=== PATIENT | female | born 1970 | race Caucasian/White ===

== ENCOUNTER → 2017-08-19 | Outpatient (CLI) | payer OTHER ==
[2017-08-19] MEDS: IOHEXOL 300 MG/ML 100ML VIAL. IV (16:15)
[2017-08-19] MEDS: IOHEXOL 240 MG/ML 50ML VIAL. PO (16:15)
== END | disposition home or self-care (01) ==
LOC: RAD 15:03
DX: N83.292 Other ovarian cyst, left side (principal)
CPT/HCPCS: 74177; Q9966; Q9967

== ENCOUNTER → 2017-11-04 | Outpatient (CLI) | payer OTHER | END | disposition home or self-care (01) | LOC: LAB 08:29 | DX: M25.551 Pain in right hip (principal); M25.552 Pain in left hip | CPT/HCPCS: 73521 ==

== ENCOUNTER → 2017-12-30 | Outpatient (CLI) | payer OTHER | END | disposition home or self-care (01) | LOC: SPEC 15:01 | PROVIDERS: ATTEND Obstetrics & Gynecology | DX: R35.0 Frequency of micturition (principal) | CPT/HCPCS: 87086 ==

== ENCOUNTER 2018-01-08 10:20 | Emergency (ER) | payer OTHER ==
[~2018-01-08] VITALS: Ht 170.2 cm; Wt 113.4 kg
[2018-01-08] MEDS: METOCLOPRAMIDE HCL 10 MG/2 ML VIAL. IV ONE (10:56)
[2018-01-08] MEDS: diphenhydrAMINE 50 MG/ML VIAL IVP ONE (10:56)
--- NOTE | 2018-01-08 11:31 | RAD ---
EXAM: CT HEAD WITHOUT CONTRAST. HISTORY: Persistent headache. TECHNIQUE: Computed tomography of the head was performed without intravenous contrast. COMPARISON: None. FINDINGS: There is no intracranial hemorrhage. Hypoattenuation within the periventricular white matter indicates mild chronic microangiopathic change. The ventricles are normal in size and position. The visualized paranasal sinuses appear clear. The orbits are unremarkable. The temporal bones are unremarkable. The calvarium reveals no suspicious lesions. IMPRESSION: 1. No acute intracranial findings. MRI is more sensitive if there is persistent concern. *One or more of the following individualized dose reduction techniques were utilized for this examination: 1. Automated exposure control. 2. Adjustment of the mA and/or kV according to patient size. 3. Use of iterative reconstruction technique. Electronically signed by: Shama Vee MD (01/08/2018 11:28 AM) [facility]
--- NOTE | 2018-01-08 11:43 | PHYS DOC ---
Past Medical History Past Medical History: Bipolar, Hypertension Additional Past Medical Histor: SLEEP APNEA Past Surgical History: Appendectomy, Cholecystectomy, Additional Past Surgical Histo: ENDOMETRIAL ABLATION Alcohol Use: None Drug Use: None Adult General Chief Complaint Chief Complaint: HEADACHE HPI HPI Patient is a 47 year old female presented to ER today for evaluation of headache for the last 6 days. Patient said headache is Behind Her Left Eye, causing sensitive to light and noise. Patient has history of migraine headache , but the headache this time it is more persistent than usual. She denies any fever, no neck pain, no injury. Patient denies any blurry vision, no eye pain, no neck pain, no fever. She has history hypertension. Review of Systems Review of Systems Constitutional: Denies fever or chills [] Eyes: Denies change in visual acuity, redness, or eye pain [] HENT: Denies nasal congestion or sore throat [] Respiratory: Denies cough or shortness of breath [] Cardiovascular: No additional information not addressed in HPI [] GI: Denies abdominal pain, nausea, vomiting, bloody stools or diarrhea [] : Denies dysuria or hematuria [] Musculoskeletal: Denies back pain or joint pain [] Integument: Denies rash or skin lesions [] Neurologic: Positive for headache, NO focal weakness or sensory changes [] Endocrine: Denies polyuria or polydipsia [] All other systems were reviewed and found to be within normal limits, except as documented in this note. Current Medications Current Medications Current Medications Medications (Trade) Dose Ordered Sig/Rachele Start Time Stop Time Status Last Admin Dose Admin Dihydroergotamine Mesylate (Dhe) 1 mg 1X STAT 01/08/18 14:03 01/08/18 14:07 DC 01/08/18 14:19 1 MG Diphenhydramine HCl (Benadryl) 50 mg 1X ONCE 01/08/18 10:45 01/08/18 10:46 DC 01/08/18 10:56 50 MG Ketamine HCl (Ketamine) 25 mg 1X ONCE 01/08/18 13:15 01/08/18 13:16 DC 01/08/18 13:20 25 MG Ketorolac Tromethamine (Toradol 30mg Vial) 30 mg 1X ONCE 01/08/18 11:45 01/08/18 11:46 DC 01/08/18 11:57 30 MG Methylprednisolone Sodium Succinate (SOLU-Medrol 125MG VIAL) 125 mg 1X ONCE 01/08/18 11:45 01/08/18 11:46 DC 01/08/18 11:57 125 MG Metoclopramide HCl (Reglan Vial) 10 mg 1X ONCE 01/08/18 10:45 01/08/18 10:46 DC 01/08/18 10:56 10 MG Morphine Sulfate (Morphine Sulfate) 4 mg 1X ONCE 01/08/18 15:00 01/08/18 15:01 Sodium Chloride 500 ml @ 500 mls/hr 1X ONCE 01/08/18 13:15 01/08/18 14:14 DC 01/08/18 13:20 500 MLS/HR Allergies Allergies Allergies Coded Allergies Type Severity Reaction Last Updated Verified Tetanus Vaccines and Toxoid Allergy Intermediate 01/08/18 Yes acetaminophen Allergy Intermediate 01/08/18 Yes propoxyphene Allergy Intermediate 01/08/18 Yes Uncoded Allergies Type Severity Reaction Last Updated Verified progesterone medication Allergy Unknown 01/08/18 Physical Exam Physical Exam Constitutional: Well developed, well nourished, no acute distress, non-toxic appearance. [] HENT: Normocephalic, atraumatic, bilateral external ears normal, oropharynx moist, no oral exudates, nose normal. [] Eyes: PERRLA, EOMI, conjunctiva normal, no discharge. [] Neck: Normal range of motion, no tenderness, supple, no stridor. [] Cardiovascular:Heart rate regular rhythm, no murmur [] Lungs & Thorax: Bilateral breath sounds clear to auscultation [] Abdomen: Bowel sounds normal, soft, no tenderness, no masses, no pulsatile masses. [] Skin: Warm, dry, no erythema, no rash. [] Back: No tenderness, no CVA tenderness. [] Extremities: No tenderness, no cyanosis, no clubbing, ROM intact, no edema. [] Neurologic: Alert and oriented X 3, normal motor function, normal sensory function, no focal deficits noted. [] Psychologic: Affect normal, judgement normal, mood normal. [] Current Patient Data Vital Signs Vital Signs Date Time Temp Pulse Resp B/P (MAP) Pulse Ox O2 Delivery O2 Flow Rate FiO2 01/08/18 14:09 99 18 99 01/08/18 10:40 99.2 165/101 (122) Room Air 99.2 EKG EKG [] Radiology/Procedures Radiology/Procedures [][facility] [address] [place] [address] IMAGING REPORT Signed PATIENT: BHARGAVI KENT ACCOUNT: [id number] : 1970 LOCATION: ER AGE: 47 SEX: F EXAM STATUS: PRE ER ORD. PHYSICIAN: JIMENA BERNAL DO REASON: HEADACHE, HTN FOR 6 DAYS PROCEDURE: CT HEAD WO CONTRAST EXAM: CT HEAD WITHOUT CONTRAST. HISTORY: Persistent headache. TECHNIQUE: Computed tomography of the head was performed without intravenous contrast. COMPARISON: None. FINDINGS: There is no intracranial hemorrhage. Hypoattenuation within the periventricular white matter indicates mild chronic microangiopathic change. The ventricles are normal in size and position. The visualized paranasal sinuses appear clear. The orbits are unremarkable. The temporal bones are unremarkable. The calvarium reveals no suspicious lesions. IMPRESSION: 1. No acute intracranial findings. MRI is more sensitive if there is persistent concern. *One or more of the following individualized dose reduction techniques were utilized for this examination: 1. Automated exposure control. 2. Adjustment of the mA and/or kV according to patient size. 3. Use of iterative reconstruction technique. Electronically signed by: Shama Vee MD (01/08/2018 11:28 AM) [facility] DICTATED and SIGNED BY: MALIHA VEE MD DATE: 01/08/18 1124 Course & Med Decision Making Course & Med Decision Making Pertinent Labs and Imaging studies reviewed. (See chart for details) [] Dragon Disclaimer Dragon Disclaimer This electronic medical record was generated, in whole or in part, using a voice recognition dictation system. Departure Departure Impression: Primary Impression: Headache Disposition: 01 HOME, SELF-CARE Condition: IMPROVED Referrals: THERESA LARIOS MD (PCP) FOLLOW UP WITH YOUR DOCTOR NEXT WEEK. Patient Instructions: General Headache Without Cause JIMENA BERNAL DO Jan 08, 2018 11:43
[2018-01-08] MEDS: KETOROLAC 30 MG/ML VIAL. IV ONE (11:57)
[2018-01-08] MEDS: methylPREDNISolone SOD SUCC PF 125 MG/2 ML VIAL. IV ONE (11:57)
[2018-01-08] MEDS: IV NORMAL SALINE 500ML BAG 500 ML IV ONE (13:20)
[2018-01-08] MEDS: KETAMINE HCL 50 MG/5 ML SYRINGE IV ONE (13:20)
[2018-01-08 14:09] VITALS: BP 140/78
[2018-01-08] MEDS: DIHYDROERGOTAMINE 1 MG/ML AMPUL. IVP STA (14:19)
[2018-01-08] MEDS: MORPHINE SULFATE 4 MG/ML VIAL. IV ONE (15:04)
[2018-01-08] MEDS ORDERED: BUTA1CAP31 PO (15:18)
== END 2018-01-08 15:23 | disposition home or self-care (01) ==
LOC: ER 10:20
DX: R51 Headache (principal); G43.909 Migraine, unspecified, not intractable, without status migrainosus; I10 Essential (primary) hypertension; F31.9 Bipolar disorder, unspecified; G47.30 Sleep apnea, unspecified; Z88.6 Allergy status to analgesic agent; Z88.7 Allergy status to serum and vaccine; Z88.8 Allergy status to other drugs, medicaments and biological substances
CPT/HCPCS: 70450; 96374; 96375; 99284; J1110; J1200; J1885; J2270; J2765; J2930; J7040

== ENCOUNTER → 2018-03-03 | Outpatient (CLI) | payer OTHER ==
[~2018-03-03] MED LIST: BUTA1CAP31 PO
--- NOTE | 2018-03-03 14:34 | RAD ---
Examination: MRI of the right shoulder without contrast HISTORY: History of right shoulder pain when lifting COMPARISON: None available Technique: Multiplanar, multisequence MR imaging of the right shoulder were performed without contrast. FINDINGS: The long head of the biceps tendon is within the bicipital groove. The attachment of the long head of the biceps tendon to the superior labral anchor grossly appears unremarkable. The attachment of the subscapularis tendon appears unremarkable. There is moderate tendinosis supraspinatus tendon. There is mild tendinosis of the infraspinatus tendon. There is fluid identified in the subacromial /subdeltoid bursa. The acromion is type II. There is bursal sided fraying of the supraspinatus tendon. A full-thickness rotator cuff tear with retraction is not clearly identified. There is obscuration of fat in the rotator interval. The muscle bulk grossly appears unremarkable. Mild fraying of the labrum likely degeneration. IMPRESSION: 1. Moderate tendinosis of the supraspinatus tendon. There is a bursal sided fraying of the supraspinatus tendon with downsloping of the acromion. Correlate for impingement. There is some fluid identified in the subacromial subdeltoid bursa could be secondary to bursitis. 2. Mild tendinosis of the infraspinatus tendon. 3. Mild obscuration of fat in the rotator interval. Correlate for adhesive capsulitis. Electronically signed by: Kehinde Rock MD (03/03/2018 2:30 PM) [id number]
== END | disposition home or self-care (01) ==
LOC: MRI 12:40
PROVIDERS: ATTEND Orthopaedic Surgery Sports Medicine
DX: M75.01 Adhesive capsulitis of right shoulder (principal)
CPT/HCPCS: 73221

== ENCOUNTER → 2018-03-24 | Outpatient (CLI) | payer OTHER ==
--- NOTE | 2018-03-24 11:00 | RAD ---
MRI Cervical Spine Without Contrast History: Worsening right arm radiculopathy for one month Technique: Multiplanar, multi sequential noncontrast MR imaging was performed of the cervical spine. Comparison: None Findings: Cervical cord caliber is within normal limits without focal signal abnormality. Cervical vertebral body stature and AP alignment are within normal limits. There is [id number] degenerative disc disease at C4-5 and C6-7 and to a somewhat lesser degree at C3-4 and C5-6. There is no significant marrow edema. C2-C3: There is minimal disc osteophyte complex and bulge. Spinal canal and neural foramina are adequate. There is minimal right uncovertebral degenerative change. C3-C4: There is disc osteophyte complex and bulge, probable shallow superimposed protrusion far right lateral recess. Central canal is adequate 12 mm, mild right lateral recess stenosis. There is right uncovertebral degenerative change. There is fairly severe narrowing of the right neural foramen, left neural foramen adequate. C4-C5: There is minimal disc osteophyte complex and bulge, mild indentation upon the ventral thecal sac greater for right lateral recess. Central canal is adequate at 11 to 12 mm, mild narrowing of the far right lateral recess. There is right uncovertebral degenerative change. There is moderate to severe narrowing of the right neural foramen, left neural foramen overall adequate. C5-C6: There is very minimal disc osteophyte complex and bulge. Spinal canal is overall adequate. Neural foramina are adequate. C6-C7: There is minimal posterior bulge. Central canal is adequate 11 to 12 mm. There is left uncovertebral degenerative change. There is very mild narrowing of the left neural foramen anteriorly, right neural foramen adequate. C7-T1: Spinal canal and neural foramina are adequate. Impression: 1. There is no significant cervical spinal stenosis, mild narrowing of the far right lateral recess C3-4 at which there is shallow protrusion. 2. Uncovertebral degenerative change contributes to more significant narrowing of the right C3-4 and C4-5 neural foramina. 3. There is multilevel [id number] degenerative disc disease greatest C4-5 and C6-7 and to lesser degree at C3-4 and C5-6, multilevel mild spondylosis. Electronically signed by: Sadiq Barragan MD (03/24/2018 10:56 AM) [id number]
== END | disposition home or self-care (01) ==
LOC: MRI 07:48
PROVIDERS: ATTEND Orthopaedic Surgery Sports Medicine
DX: M50.31 Other cervical disc degeneration, high cervical region (principal); M50.21 Other cervical disc displacement, high cervical region; M47.892 Other spondylosis, cervical region; M48.02 Spinal stenosis, cervical region; M25.78 Osteophyte, vertebrae
CPT/HCPCS: 72141

== ENCOUNTER → 2018-04-26 | Outpatient (CLI) | payer OTHER ==
[~2018-04-26] MED LIST changes: +ARIP15TA3 PO; +CLON0.5T PO; +DULO60CA6 PO; +IOHEXOL 180 MG/ML 10 ML VIAL. ONE; +LAMO150T3 PO; +LEVO50TA5 PO; +METO-247 PO; +TOPI50TA38 PO; +VERA240C2 PO; +methylPREDNISolone ACETATE 40 MG/ML VIAL. ONE; +methylPREDNISolone ACETATE 80 MG/ML VIAL. ONE
--- NOTE | 2018-04-26 18:05 | PAIN ---
DATE OF SERVICE: 04/26/2018 CHIEF COMPLAINT: Neck and right upper extremity pain. HISTORY OF PRESENT ILLNESS: This is a 48-year-old female who presents with history of pain since 02/21/2018. The patient was working. 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 The patient reports as the time has gone on, it has become worse over the past few months. It is constant pain, now is throbbing, tingling with numbness, radiation in the right upper extremity, aching and cold, changes during the day, worse with activity. The patient did do physical therapy for about 2 weeks, but the pain was not resolved and it was making it worse. The patient reports she still does some stretching exercises with her neck and shoulder. She did have an MRI scan of the cervical spine showing disk protrusions at C3-C4 and C4-C5 with far right lateral recess protrusion and shallow protrusion at the disk and osteophyte as well. There is history of both levels with mild narrowing in the far right lateral recess at C4-C5 and shallow superimposed protrusion at C3-C4. The patient reports the disability rate from 0-10, 10 being the worst, is an 8 with home responsibilities, recreation, 9 with occupation, 6 social activity, 4 sexual behavior and self-care and 3 with life support activities. The patient did physical therapy for about 2 weeks and doing some stretching and strengthening exercises. She has taken Tylenol, Naprosyn, ibuprofen, which helped to a mild extent maybe 25%. The patient has tried Lortab, which helped as well by about 50%. PAST MEDICAL HISTORY: Significant for hypertension, arthritis in the knees, headaches. PREVIOUS SURGERY: Includes a x 3, laparoscopic cholecystectomy, appendectomy, urine ablation, bladder sling procedure, bunionectomy. CURRENT MEDICATIONS: Include Fiorinal, Cymbalta, Klonopin, metoprolol, levothyroxine, Topamax, Lamictal, Abilify and verapamil. ALLERGIES: THE PATIENT IS ALLERGIC TO TETANUS TOXIN AND DARVOCET. FAMILY HISTORY: Significant for hypertension, bipolar disease, depression, hypercholesterolemia, cardiac disease and Alzheimer's. SOCIAL HISTORY: The patient drinks alcohol very rarely. Does not smoke or use any other illegal, illicit or recreational drugs. She is living with her spouse, has 2 children living at home, 1 in college and lives locally in [place], [place]. 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 REVIEW OF SYSTEMS: Positive for those items mentioned in history of present illness. All systems reviewed, otherwise negative. It is complete, full and well documented on the patient's chart. PHYSICAL EXAMINATION: VITAL SIGNS: The patient's blood pressure is 135/80, pulse 77, respirations 16, temperature is 98.7 degrees Fahrenheit. Height is 5 feet 7 inches, weight is 264 pounds. GENERAL: The patient is awake, alert, oriented, appropriate, very pleasant demeanor. HEENT: Head shows normocephalic, atraumatic. Extraocular movements are intact and symmetrical. Oral cavity: Mucous membranes are moist and pink. Dentition is intact. NECK: Shows anterior throat supple without palpable lymphadenopathy noted. Swallow reflex is symmetrical. CHEST: Shows normal on inspection. Breath sounds are clear to auscultation bilaterally. HEART: Shows S1, S2 clear. No murmurs auscultated. ABDOMEN: Obese, soft, nontender, nondistended. No palpable organomegaly is noted. No rebound or guarding demonstrated. BACK: Shows spine grossly in midline. Cervical lordotic curvature is maintained as is thoracic kyphotic curvature and lumbar lordotic curvature. Cervical paraspinal musculature shows symmetrical on inspection. The patient has some moderate tenderness, more on the right than the left in the inferior aspect of the cervical paraspinous musculature as well as the superior medial and lateral trapezius on the right, slightly more firm musculature without trigger points, without radiation. The patient has significant tenderness with rotation past 45 degrees to the right, but not to the left as well as full extension, full flexion was performed without difficulty. EXTREMITIES: The patient's upper extremities show deep tendon reflexes at 1+ in the patella and tendo calcaneus tendons. Motor exam is approximately 4 on a scale of 5 with right astrochemist strength and 5/5 with left and bicep and tricep flexion is 5/5 bilaterally. Peripheral pulses are 2+ radial distribution. No peripheral edema is noted. Shoulder shrug is strong and intact without loss of strength and resistance but with significant pain reported in the base of the neck and right superior aspect of the shoulder on the right side with resistance. This is true with abduction of the shoulder to 90 degrees bilaterally, but again without loss of strength and resistance, but with pain reported in the right side in the same region. IMPRESSION: 1. This is a 48-year-old female with an injury while working as registered nurse on 02/21/2018 with radicular pain in the right upper extremity. 2. MRI scan cervical spine as noted. 3. Hypertension. 4. Arthritis. PLAN: Options were discussed with the patient including conservative medical management, physical therapy, interventional techniques. She would like to pursue interventional techniques. We discussed cervical epidural steroid injection using descriptions as well anatomical models to describe the procedure. Risks were then discussed including but not limited to bleeding, infection, possibility of epidural hematoma and subsequent neurological compromise, dural puncture, headaches, spinal cord and/or nerve damage, side effects of steroid medication and poor results regarding pain control. The patient understands and wished to proceed. The patient will return to clinic in approximately 2 weeks for followup, was counseled as to return appointment, activity level and side effects to be aware of. DIAGNOSES: Cervical radiculopathy with cervical degenerative disk disease and cervical herniated disk. PROCEDURE: Cervical epidural steroid injection translaminar approach, C6-C7 level using C-arm fluoroscopic guidance under sterile prep and drape using local anesthetic. MEDICATIONS INJECTED: A total of 120 mg Depo-Medrol plus 5 mL preservative-free normal saline and 2 mL of Isovue for contrast. CONDITION AT DISCHARGE: Stable. The patient tolerated the procedure well, had no complications. EUNICE PEDRAZA MD DR: BLANCHE/ever JOB#: [id number] / [id number] ROSENDO Winston
== END | disposition home or self-care (01) ==
LOC: PNCL 13:39
PROVIDERS: ATTEND Anesthesiology
DX: M50.123 Cervical disc disorder at C6-C7 level with radiculopathy (principal); I10 Essential (primary) hypertension; M17.0 Bilateral primary osteoarthritis of knee; Z90.49 Acquired absence of other specified parts of digestive tract; Z98.890 Other specified postprocedural states; Z79.899 Other long term (current) drug therapy; Z82.49 Family history of ischemic heart disease and other diseases of the circulatory system; Z81.8 Family history of other mental and behavioral disorders; Z82.0 Family history of epilepsy and other diseases of the nervous system; Z83.49 Family history of other endocrine, nutritional and metabolic diseases; Z72.89 Other problems related to lifestyle; Z88.5 Allergy status to narcotic agent; Z88.7 Allergy status to serum and vaccine; Z88.8 Allergy status to other drugs, medicaments and biological substances
CPT/HCPCS: 62321; J1030; J1040; Q9965

== ENCOUNTER → 2018-05-09 | Outpatient (CLI) | payer OTHER ==
[~2018-05-09] MED LIST changes: +ACET500T68 PO; +CLON0.5T11 PO; +CYCL10TA2 PO; +DOCU-109 PO; +HYDR2TAB31 IVP; +IBUP-1060 PO; +LISI-334 PO; +LISI10TA2 PO; +MAGN2400 PO; +MORP4CAR IV; +NORT25CA PO; +NYST60PO TP; +ONDA4TAB7 IVP; +ONDA8TAB9 IVP; +OXYC1TAB19 PO
--- NOTE | 2018-05-09 20:37 | PAIN ---
DATE OF SERVICE: 05/09/2018 PROGRESS NOTE FOR PAIN CLINIC DIAGNOSIS: Cervical radiculopathy with cervical degenerative disk disease and cervical herniated disk. HISTORY OF PRESENT ILLNESS: The patient is a 48-year-old female who returns for followup status post cervical epidural steroid injection x 1. The patient reports 75% improvement for the first 2 days, then the pain came back significantly to basically the baseline level in the base of the neck and shoulders, a little worse on the right than the left with radiating pain in the arms with tingling and numbness in the hands bilaterally. The patient reports it is aching, dull, tingling, becoming more constant with time, worse with activity, standing, walking, raising her arms over her head, repetitive motions with the upper extremities, shoulders or moving her head, especially with extension of the cervical spine. The patient reports the pain is a 9 on a scale of 10 at its worst, 7 on average, 3 at its least and is a 7 today. The patient reports no new motor or sensory deficits, no new bowel or bladder incontinence or other complaints. The patient reports it awakens her from sleep about every 6 hours, but not every night. The patient reports no new changes. PHYSICAL EXAMINATION: VITAL SIGNS: The patient's blood pressure 140/85, pulse 77, respirations 18, temperature 98.4 degrees Fahrenheit, height 5 feet 7 inches and weight is 263 pounds. GENERAL: The patient is awake, alert, oriented, appropriate, very pleasant demeanor. HEENT: Head shows normocephalic and atraumatic. Extraocular movements are intact and symmetrical. Oral cavity: Mucous membranes are moist and pink. Dentition is intact. NECK: Shows anterior throat is supple without palpable lymphadenopathy noted. Swallow reflex is symmetrical. CHEST: Shows normal with inspection. Breath sounds are clear to auscultation bilaterally. HEART: Shows S1 and S2 clear. No murmurs are auscultated. ABDOMEN: Soft, nontender and nondistended. No palpable organomegaly is noted. No rebound or guarding. BACK: The patient's back shows spine grossly in the midline. Cervical paraspinous musculature and cervical lordotic curvature looks normal on appearance. Paraspinous musculature on palpation shows some moderate tenderness bilaterally, but only diffusely in the inferior aspect of the cervical paraspinous muscles and also superior medial trapezius, slightly more on the right than the left. The patient has good rotational motion of the cervical spine both laterally as well as extension and flexion with some minor tenderness with extension into the right posterior cervical distribution, but not with forward flexion. EXTREMITIES: Upper extremities show deep tendon reflexes 1+ in the biceps and triceps tendons. Motor exam is approximately 4 on a scale of 5 on the right, 5/5 on the left with director of maintenance strength, bicep and tricep flexion. Peripheral pulses are 2+ radial distribution. No peripheral edema is noted bilaterally. Options were discussed with the patient. The patient's old chart was reviewed as was her current medication regimen updated. Current review of systems updated today as well and we will proceed with a second in the series of cervical epidural steroid injection today with fluoroscopic guidance. Risks were again discussed including, but not limited to bleeding, infection, possibility of epidural hematoma, subsequent neurological compromise, dural puncture, headaches, spinal cord and/or nerve damage, side effects of steroid medication and poor results regarding pain control. The patient understands and wished to proceed. The patient will return to the clinic in approximately 2 weeks for followup, was counseled as to return appointment, activity level and side effects to be aware of. DIAGNOSIS: Cervical radiculopathy with cervical degenerative disk disease and cervical herniated disk. PROCEDURE: Cervical epidural steroid injection, translaminar approach C6-C7 level using C-arm fluoroscopic guidance under sterile prep and drape using local anesthetic. MEDICATION INJECTED: A total of 120 mg Depo-Medrol plus 5 mL of preservative-free normal saline and 2 mL of Isovue for contrast. CONDITION AT DISCHARGE: Stable. The patient tolerated the procedure well and had no complications. EUNICE PEDRAZA MD DR: BLANCHE/ever JOB#: [id number] / [id number]
== END | disposition home or self-care (01) ==
LOC: PNCL 14:03
PROVIDERS: ATTEND Anesthesiology
DX: M50.123 Cervical disc disorder at C6-C7 level with radiculopathy (principal); Z88.7 Allergy status to serum and vaccine; Z88.6 Allergy status to analgesic agent; Z88.8 Allergy status to other drugs, medicaments and biological substances
CPT/HCPCS: 62321; J1030; J1040; Q9965

== ENCOUNTER → 2018-05-18 | Outpatient (CLI) | payer OTHER ==
[~2018-05-18] MED LIST changes: -CLON0.5T11 PO; -CYCL10TA2 PO; -HYDR2TAB31 IVP; -IOHEXOL 180 MG/ML 10 ML VIAL. ONE; -LISI-334 PO; -MAGN2400 PO; -MORP4CAR IV; -NYST60PO TP; -ONDA4TAB7 IVP; -ONDA8TAB9 IVP; -methylPREDNISolone ACETATE 40 MG/ML VIAL. ONE; -methylPREDNISolone ACETATE 80 MG/ML VIAL. ONE
[2018-05-18 11:00] LABS: BASO % 1 % (0-3); EOS # 0.1 x10^3/uL (0.0-0.7); EOS % 1 % (0-3); HEMATOCRIT 41.4 % (36.0-47.0); HEMOGLOBIN 13.8 g/dL (12.0-15.5); LYMPH # 1.7 x10^3/uL (1.0-4.8); LYMPH % 20 % (24-48); MEAN CORPUSCULAR HEMOGLOBIN 31 pg (25-35); MEAN CORPUSCULAR HGB CONC 33 g/dL (31-37); MEAN CORPUSCULAR VOLUME 93 fL (79-100); MONO # 0.5 x10^3/uL (0.0-1.1); MONO % 6 % (0-9); NEUT # 6.2 x10^3uL (1.8-7.7); NEUT % 73 % (31-73); PLATELET COUNT 248 x10^3/uL (140-400); RED BLOOD COUNT 4.48 x10^6/uL (3.50-5.40); RED CELL DISTRIBUTION WIDTH 13.8 % (11.5-14.5); WHITE BLOOD COUNT 8.6 x10^3/uL (4.0-11.0)
[2018-05-18 11:19] LABS: ALBUMIN 3.5 g/dL (3.4-5.0); ALBUMIN/GLOBULIN RATIO 0.9 (1.0-1.7); GFR 59.4; POTASSIUM 3.8 mmol/L (3.5-5.1); TOTAL BILIRUBIN 0.3 mg/dL (0.2-1.0); TOTAL PROTEIN 7.2 g/dL (6.4-8.2)
== END | disposition home or self-care (01) ==
LOC: SURGPAT 10:21
PROVIDERS: ATTEND Neurological Surgery
DX: Z01.818 Encounter for other preprocedural examination (principal); M54.12 Radiculopathy, cervical region
CPT/HCPCS: 36415; 80053; 85025; 87641

== ENCOUNTER 2018-05-20 07:08 | Observation (INO) | payer OTHER ==
--- NOTE | 2018-05-19 14:52 | PREOP HP ---
DATE OF SERVICE: 05/20/2018 Mahad Hager RN dictating for Dr. Minesh Swan. 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 She has been having difficulty with right-sided neck pain and pain which radiates into her right shoulder and medial scapular region. There is also pain which can radiate into the right arm and to a lesser extent in the forearm and right hand. She notes tingling in the fingers of her right hand. She also wonders about weakness in both of her hands. The problem started on 02/21 after lifting a patient. She rates her pain as a 6-7/10. Turning her head to the right markedly increases her pain on the right side of her neck and right shoulder pain. Raising her arms up, also increases her pain. Occasionally, the pain can radiate up into the right ear. Ice and heat have helped. She is taking Tylenol and ibuprofen. She tried physical therapy, but that is on hold for the present time. PAST MEDICAL HISTORY: Osteoarthritis, headaches, hypertension, psychiatric care and thyroid disease. PAST SURGICAL HISTORY: , cholecystectomy, appendectomy, uterine ablation and bladder sling, nasal reconstruction. FAMILY HISTORY: Alzheimer's, brain tumor, cancer, heart disease, hypertension, MD, headaches. SOCIAL HISTORY: She is a registered nurse in the ER. . Nonsmoker. Drinks alcohol 1-2 times per month. ALLERGIES: TETANUS and DARVOCET. CURRENT MEDICATIONS: Tylenol, ibuprofen, Cymbalta, Klonopin, Lamictal, nortriptyline, metoprolol, lisinopril, levothyroxine, verapamil, Topamax, Abilify and Flexeril. REVIEW OF SYSTEMS: A 12-point review of systems was obtained and is noncontributory except for that mentioned above. PHYSICAL EXAMINATION: NEUROSURGERY EXAMINATION: GENERAL APPEARANCE: Alert, pleasant, in no acute distress. HEAD: Normocephalic and atraumatic. NECK AND THYROID: Mild-to- moderate tenderness with palpation of posterior cervical region. SKIN: Warm and dry. MUSCULOSKELETAL: Cervical paraspinal muscle bulk is normal, cervical range of motion is restricted, significant right neck and shoulder pain with head turning to the right. Moderately severe pain of the right paraspinal muscles, normal range of motion of the upper extremities bilaterally. EXTREMITIES: No clubbing, cyanosis or edema. NEUROLOGIC: Alert and oriented x 3, normal recent and remote memory, strength 5/5 in bilateral upper and lower extremities, sensory was intact to light touch in the upper and lower extremities except for diffuse decrease involving the fingers in her right hand to light touch, reflexes were trace and symmetric in the upper and lower extremities bilaterally, normal gait. IMAGING: Reviewed. I reviewed a cervical MRI scan. On that study, there is neural foraminal narrowing and lateral recess narrowing at C3-C4 on the right along with associated shallow disk protrusion. At C4-C5, there is severe narrowing of the right neural foramen. ASSESSMENT: 1. Radiculopathy, cervical region. 2. Cervicalgia. PLAN: The patient has a fairly significant right cervical radiculopathy. She has recently had 2 cervical epidural steroid injections, which she said were not helpful. At this point, I recommend an anterior cervical diskectomy and fusion at C3-C4 and C4-C5. I did speak with her about her anterior neck surgery. I spoke about the technique of the operation as well as the risk associated with neck surgery. I have discussed the soft tissue structures of the neck and injury to each including injury to the carotid artery and stroke. Injury to the trachea and esophagus, permanent swallowing difficulties, paralysis of the limb and lower body and the possibility of infection. I also discussed normal expected postoperative course. She understands. She would like to proceed with surgery. We will make the arrangements. MINESH SWAN MD DR: ELIANA/ever JOB#: [id number] / [id number]
[2018-05-20] VITALS (8 sets, daily range): BP systolic 123–145; BP diastolic 60–84
[~2018-05-20] VITALS: Ht 170.2 cm; Wt 119.3 kg
[~2018-05-20 07:08] MED LIST changes: +BACITRACIN 50,000 UNIT in IV NORMAL SALINE 1000ML BAG 1,000 ML IRR ONE; -DOCU-109 PO; +IV RINGERS,LACTATED 1000ML 1,000 ML IV SCH; +LIDOCAINE 1% PF 2 ML VIAL. ID PRN; +MORPHINE SULFATE 4 MG/ML VIAL. IV PRN; +ONDANSETRON PF 4 MG/2 ML VIAL. IV PRN; -OXYC1TAB19 PO; +PROCHLORPERAZINE 10 MG/2 ML VIAL. IV PRN; +fentaNYL PF VIAL 100 MCG/2 ML VIAL IV PRN
[2018-05-20] MEDS ORDERED: THROMBIN TOPICAL 20,000 UNIT SPRAY.SYRN KIT TP ONE (07:21)
[2018-05-20] MEDS ORDERED: GELATIN SPONGE SIZE 100. ONE (07:21)
[2018-05-20] MEDS ORDERED: BUPIVAC MPF-EPI 0.5%-1:200000 30 ML VIAL. ONE (07:21)
[2018-05-20] MEDS ORDERED: ONDANSETRON PF 4 MG/2 ML VIAL. ONE (07:51)
[2018-05-20] MEDS ORDERED: ROCURONIUM 50 MG/5 ML VIAL. ONE (07:51)
[2018-05-20] MEDS ORDERED: fentaNYL PF VIAL 100 MCG/2 ML VIAL ONE (07:51)
[2018-05-20] MEDS ORDERED: LIDOCAINE 2% PF Vial for OR 5 ML VIAL. ONE (07:51)
[2018-05-20] MEDS ORDERED: FAMOTIDINE 20 MG/2 ML VIAL ONE (07:51)
[2018-05-20] MEDS ORDERED: MIDAZOLAM HCL/PF 2 MG/2 ML VIAL. ONE (07:51)
[2018-05-20] MEDS ORDERED: PROPOFOL 20 ML IV ONE (07:51)
[2018-05-20] MEDS ORDERED: DEXAMETHASONE SOD PHOS 20 MG/5 ML VIAL. ONE (07:51)
[2018-05-20] MEDS ORDERED: REMIFENTANIL 2 MG VIAL. IV ONE (07:52)
[2018-05-20] MEDS ORDERED: PROPOFOL 100 ML IV ONE (07:56)
[2018-05-20] MEDS ORDERED: VASOPRESSIN 20 UNIT/ML VIAL. ONE (09:43)
[2018-05-20 10:21] LABS: U PREG PATIENT NEGATIVE (NEG)
[2018-05-20] MEDS ORDERED: PROPOFOL 50 ML IV ONE (10:48)
[2018-05-20] MEDS ORDERED: NEOSTIGMINE 10 MG/10 ML VIAL. ONE (11:06)
[2018-05-20] MEDS ORDERED: GLYCOPYRROLATE 1 MG/5 ML VIAL. ONE (11:06)
[2018-05-20] MEDS ORDERED: DESFLURANE > 120 MINUTES IH ONE (11:08)
[2018-05-20] MEDS ORDERED: REMIFENTANIL 1 MG VIAL. IV ONE (11:08)
[2018-05-20] MEDS ORDERED: KETOROLAC 30 MG/ML VIAL. ONE (12:09)
[2018-05-20] MEDS: fentaNYL PF VIAL 100 MCG/2 ML VIAL IV PRN ×4 (12:11→20:00)
[2018-05-20] MEDS ORDERED: KETOROLAC 30 MG/ML VIAL. IV ONE (12:15)
[2018-05-20] MEDS: HYDROmorphone 2 MG/ML VIAL IV PRN ×4 (12:26→13:07)
[2018-05-20] MEDS: POTASSIUM CL 20MEQ D5-0.45NACL 1,000 ML IV SCH (12:26)
[2018-05-20] MEDS ORDERED: NALOXONE 0.4 MG/ML VIAL. IV PRN (12:30)
[2018-05-20] MEDS ORDERED: ZOLPIDEM 5 MG TABLET. PO PRN (12:30)
[2018-05-20] MEDS ORDERED: diphenhydrAMINE HCL 25 MG CAPSULE PO PRN (12:30)
[2018-05-20] MEDS ORDERED: 0.9 % SODIUM CHLORIDE 10 ML DISP.SYRIN. IV PRN (12:30)
[2018-05-20] MEDS ORDERED: MAG HYDROX/ALUMINUM HYD/SIMETH 30 ML ORAL.SUSP PO PRN (12:30)
[2018-05-20] MEDS ORDERED: MAGNESIUM HYDROXIDE 2,400 MG/30 ML ORAL.SUSP. PO PRN (12:30)
[2018-05-20] MEDS ORDERED: CALCIUM CARBONATE 500 MG TAB.CHEW PO PRN (12:30)
--- NOTE | 2018-05-20 12:35 | OP ---
DATE OF SURGERY: 05/20/2018 PREOPERATIVE DIAGNOSIS: Lateral recess stenosis from disc osteophyte complex, right C3-C4 and C4-C5 with right cervical radiculopathy. POSTOPERATIVE DIAGNOSIS: Lateral recess stenosis from disc osteophyte complex, right C3-C4 and C4-C5 with right cervical radiculopathy. OPERATION PERFORMED: Anterior cervical microdiscectomy C3-C4 and C4-C5; anterior cervical interbody fusion C3-C4 and C4-C5 and anterior cervical plate C3, C4 and C5. The operation was done with EMG monitoring, SSEP monitoring, NIMS monitoring, motor evoked potentials. We also used fluoroscopy and microscopic dissection. SURGEON: Minesh Swan M.D. ADVERTISING SALES ASSISTANT: Carri Lowe APRN OPERATIVE INDICATIONS: The patient is a very pleasant 48-year-old who developed intractable neck and right arm pain, which failed to improve with conservative measures, including cervical physical therapy. On imaging studies, she had the above-mentioned findings and I recommended a 2-level anterior cervical microdiscectomy and fusion. I spoke with her about the surgery, the risks, the technique and the expected postoperative course and she understood and wished to go ahead. DESCRIPTION OF THE PROCEDURE: Following general endotracheal anesthesia, the patient was positioned supine on the operating room table. The anterior cervical region was prepped and draped in the standard fashion. She was in a neutral position: AV impulse boots were applied for DVT prophylaxis. A microscope was draped. Fluoroscopy was draped and brought into the field and monitoring was established. Using fluoroscopic guidance, incision was made from the midline around to the right side in a skin crease. I dissected down to the skin and subcutaneous tissue. I sharply divided a portion of the platysma and then passed from the medial aspect of the sternocleidomastoid and carotid artery sheath down the anterior cervical vertebral bodies. I reflected the trachea and esophagus contralaterally and placed self-retaining retractor at C4-C5 and I confirmed my position fluoroscopically. I placed 14-mm pins in C4 and C5 while I placed the anterior cervical retractors wedged in the longus colli muscles and then I brought in the microscope and the remainder of surgery was done with the microscope using microscopic technique. I incised the anterior annulus, performed discectomy with pituitary rongeurs. There was considerable anterior spurring and I drilled this away. There was posterior spurring and I drilled this away. I opened the annulus and the ligament with an arachnoid knife and opened widely bilaterally. There was a disc osteophyte complex on the right and I trimmed this away and the foramen was opened. I placed a 7-mm lordotic cage, which was packed with allograft and autograft bone and tapped into position. I removed the pin from C5 and put bone wax into this opening and with the retractor up to C3-C4, placed a pin into C3 and distracted. I performed the identical operation at C3-C4. At this level, there was a larger calcified disc osteophyte complex and I drilled this down and thinned it and then used 1-2 mm Kerrisons to trim this away. I did open the annulus and ligament and worked widely bilaterally. I was able to enter the foramen without difficulty. At this level, I placed a straight 7 mm cage. This was then again tapped into position and then I measured and placed an anterior plate measuring 30 mm and 40 mm screws, which were all locked after placement using the spinal elements Piranha system. At this point, then I irrigated copiously with antibiotic solution and removed the retractors. I explored carefully and Valsalva the patient. Hemostasis was perfect. I closed the platysma with absorbable sutures in the subcutaneous tissue as well. Similarly, the skin was closed with a 4-0 subcuticular stitch. The operation went very well. I was quite pleased with the surgery. There were no changes with the monitoring. Again, I was pleased with the surgery. MINESH SWAN MD DR: ELIANA/ever JOB#: [id number] / [id number] ABDOUL
[2018-05-20] MEDS ORDERED: HYDROcodone/APAP 7.5/325MG 1 TAB TABLET PO PRN ×2 (12:45)
[2018-05-20] MEDS: LISINOPRIL 10 MG TABLET PO SCH (13:00)
[2018-05-20] MEDS: VERAPAMIL SR 120 MG TABLET.ER. PO SCH (13:00)
[2018-05-20] MEDS: DULoxetine HCL 30 MG CAPSULE.DR PO SCH (13:00)
[2018-05-20] MEDS: METOPROLOL SUCC 24HR ER 100 MG TAB.ER.24H. PO SCH (13:00)
--- NOTE | 2018-05-20 14:00 | NUR ---
admitted to room 44o after neck surgery by Dr. Erickson. denies numbness/tingling in right arm demand planning analyst equal and strong, good sensation and pulses bilateral. admission completed. several family members at bedside. tolerating clear liquids well.dressing to neck is clean dry and intact
[2018-05-20] MEDS: METHOCARBAMOL 750 MG TABLET PO SCH ×2 (15:21→21:00)
[2018-05-20] MEDS: TOPIRAMATE 25 MG TABLET. PO SCH ×2 (15:22→21:52)
--- NOTE | 2018-05-20 15:30 | NUR ---
attempted to void and was unable. will give her awhile for medication to work and will attempt again later
--- NOTE | 2018-05-20 16:08 | NUR ---
bladder scan completed; she had 620. she is up to bathroom and if unable to void will straight cath. she is drinking fluids well.
--- NOTE | 2018-05-20 16:15 | NUR ---
straight cath done with return of 500 cc di. iv site infiltrated and dcd. restarted on the left inner forearm with 20 gauge insyte and connected to previous tubing
[2018-05-20] MEDS: ceFAZolin SODIUM 1 GM in IV DEXTROSE 5% 50 ML IV SCH (16:51)
[2018-05-20] MEDS: BENZOCAINE/MENTHOL LOZENGE. PO PRN ×2 (16:51→18:17)
[2018-05-20] MEDS ORDERED: ONDANSETRON ODT 4 MG TAB.RAPDIS. PO PRN (18:00)
[2018-05-20] MEDS ORDERED: NORTRIPTYLINE 25 MG CAPSULE PO SCH (21:00)
[2018-05-20] MEDS ORDERED: oxyCODONE IR 5 MG TABLET PO PRN (21:15)
[2018-05-20] MEDS: DOCUSATE SODIUM 100 MG CAPSULE. PO SCH (21:51)
[2018-05-20] MEDS: NORTRIPTYLINE 25 MG CAPSULE PO SCH (21:52)
[2018-05-20] MEDS: clonazePAM 0.5 MG TABLET PO SCH (21:52)
[2018-05-20] MEDS: lamoTRIgine 100 MG TABLET. PO SCH (21:57)
[2018-05-21] MEDS: fentaNYL PF VIAL 100 MCG/2 ML VIAL IV PRN ×6 (00:42→20:49)
[2018-05-21] MEDS: ceFAZolin SODIUM 1 GM in IV DEXTROSE 5% 50 ML IV SCH ×2 (00:42→08:47)
[2018-05-21] MEDS: POTASSIUM CL 20MEQ D5-0.45NACL 1,000 ML IV SCH (01:21)
--- NOTE | 2018-05-21 01:27 | NUR ---
Pt. refused TYLER's on her feet. 0900 Pt. not having any urine output. Bladder scanned and 513 cc retained in bladder. Dr. Erickson called, Carri Lowe coroner forensic technician tonallyson. Stated to either straight cath or place osuna catheter. Spoke to patient about details and pt. was in restroom at that time so this nurse did not have to do either of those things.
[2018-05-21 03:10] VITALS: BP 112/48
[2018-05-21] MEDS: oxyCODONE IR 5 MG TABLET PO PRN ×2 (03:52→08:54)
[2018-05-21] MEDS: LEVOTHYROXINE 50 MCG TABLET PO SCH (05:59)
[2018-05-21] MEDS: BENZOCAINE/MENTHOL LOZENGE. PO PRN (06:16)
[2018-05-21 07:00] VITALS: BP 140/77
[2018-05-21] MEDS ORDERED: PHENOL ORAL SPRAY 177ML BOTTLE. PO PRN (08:00)
[2018-05-21] MEDS: METOPROLOL SUCC 24HR ER 100 MG TAB.ER.24H. PO SCH (08:44)
[2018-05-21] MEDS: DOCUSATE SODIUM 100 MG CAPSULE. PO SCH ×2 (08:44→20:48)
[2018-05-21] MEDS: TOPIRAMATE 25 MG TABLET. PO SCH ×2 (08:45→20:48)
[2018-05-21] MEDS: VERAPAMIL SR 120 MG TABLET.ER. PO SCH (08:45)
[2018-05-21] MEDS: DULoxetine HCL 30 MG CAPSULE.DR PO SCH (08:46)
[2018-05-21] MEDS: LISINOPRIL 10 MG TABLET PO SCH (08:46)
[2018-05-21 11:00] VITALS: BP 148/82
--- NOTE | 2018-05-21 11:09 | DISCH ---
DISCHARGE INSTRUCTIONS Condition on Discharge Condition on Discharge: Stable Activity After Discharge Activity Instructions for Disc: Activity as tolerated, Avoid exertion Other activity instructions: no driving for a week Bathing Instructions: Shower-keep dressing dry Lifting Instructions after Dis: No heavy lifting, No pulling or pushing, Do not lift >10 pounds Diet after Discharge Diet after Discharge: Regular Wound Incision Care Wound/Incision Care: Ice to area for comfort Other wound/incision instructi: may remove dressing in 48 hrs id dry then may shower, no soaking Contacting the after DC Call your doctor for: Concerns you may have Follow-Up Follow up with: Dr. Swan's nurse in 2 weeks [phone] FARZAD SWAN MD May 21, 2018 11:09
[2018-05-21] MEDS ORDERED: OXYC1TAB19 PO (11:19)
[2018-05-21] MEDS ORDERED: DOCU-109 PO (11:19)
[2018-05-21] MEDS: oxyCODONE/APAP 7.5/325 1 TAB TABLET PO PRN ×3 (12:00→23:45)
[2018-05-21] MEDS: clonazePAM 0.5 MG TABLET PO SCH ×2 (12:01→20:48)
[2018-05-21 15:00] VITALS: BP 121/56
--- NOTE | 2018-05-21 16:36 | PDOC ---
PROGRESS NOTES Subjective Subjective Patient seen at 1130 POD #1 c/o neck pain Objective Objective Vital Signs Date Time Temp Pulse Resp B/P (MAP) Pulse Ox O2 Delivery O2 Flow Rate FiO2 05/21/18 15:27 20 Room Air 05/21/18 11:00 97.9 76 148/82 (104) 98 97.9 05/20/18 16:00 3.0 Intake and Output 05/21/18 07:00 Intake Total 1810 ml Output Total 2370 ml Balance -560 ml Intake Oral 1810 ml Output Urine Total 2350 ml Estimated Blood Loss 20 ml Physical Exam General: Alert, Oriented X3, Cooperative Neuro: Normal speech, Strength at 5/5 X4 ext Skin: Other (dressing C,D,I, flat) Plan Plan of Care see orders encouraged increased activity as tolerated encouraged PO pain medication PT scds when in bed possibly dc later today or tomorrow Comment Review of Relevant I have reviewed the following items rios (where applicable) has been applied. Labs Laboratory Tests Test 05/20/18 07:15 Urine Test Negative (NEG) Medications Current Medications Bacitracin 67931 unit/Sodium Chloride 1,000 ml @ 1,000 mls/hr 1X ONCE IRR Last administered on 05/20/18at 09:47; Start 05/20/18 at 06:00; Stop 05/20/18 at 06:59; Status DC Ondansetron HCl (Zofran) 4 mg PRN Q6HRS PRN IV NAUSEA/VOMITING; Start 05/20/18 at 07:00; Stop 05/21/18 at 06:59; Status DC Fentanyl Citrate (Fentanyl 2ml Vial) 25 mcg PRN Q5MIN PRN IV MILD PAIN Last administered on 05/20/18at 15:24; Start 05/20/18 at 07:00; Stop 05/21/18 at 06:59 ; Status DC Fentanyl Citrate (Fentanyl 2ml Vial) 50 mcg PRN Q5MIN PRN IV MODERATE TO SEVERE PAIN Last administered on 05/20/18at 12:18; Start 05/20/18 at 07:00; Stop 05/21/18 at 06:59; Status DC Morphine Sulfate (Morphine Sulfate) 1 mg PRN Q10MIN PRN IV SEVERE PAIN; Start 05/20/18 at 07:00; Stop 05/21/18 at 06:59; Status DC Ringer's Solution 1,000 ml @ 30 mls/hr Q24H IV Last administered on 05/20/18at 07:39; Start 05/20/18 at 07:00; Stop 05/20/18 at 18:59; Status DC Lidocaine HCl (Xylocaine-Mpf 1% 2ml Vial) 2 ml PRN 1X PRN ID IV START; Start at 07:00; Stop 05/21/18 at 06:59; Status DC Hydromorphone HCl (Dilaudid) 0.5 mg PRN Q10MIN PRN IV SEV PAIN, Second choice Last administered on 05/20/18 13:07; Start 05/20/18 at 07:00; Stop 05/21/18 at 06:59; Status DC Prochlorperazine Edisylate (Compazine) 5 mg PACU PRN PRN IV NAUSEA, MRX1 Last administered on 05/20/18at 12:12; Start 05/20/18 at 07:00; Stop 05/21/18 at 06:59 ; Status DC Cefazolin Sodium/ Dextrose 50 ml @ 100 mls/hr 1X PREOP PRN IV PRIOR TO PROCEDURE Last administered on 05/20/18at 09:30; Start 05/20/18 at 06:00; Stop at 18:00; Status DC Gelatin (Gelfoam Size 100) 1 each STK-MED ONCE .ROUTE Last administered on 09:47; Start 05/20/18 at 07:21; Stop 05/20/18 at 07:22; Status DC Bupivacaine HCl/ Epinephrine Bitart (Sensorcain-Mpf Epi 0.5%-1:[id number]) 30 ml STK -MED ONCE .ROUTE Last administered on 05/20/18at 09:47; Start 05/20/18 at 07:21 ; Stop 05/20/18 at 07:22; Status DC Thrombin 20,000 unit STK-MED ONCE TP Last administered on 05/20/18 09:47; Start 05/20/18 at 07:21; Stop 05/20/18 at 07:22; Status DC Propofol 20 ml @ As Directed STK-MED ONCE IV ; Start 05/20/18 at 07:51; Stop at 07:52; Status DC Dexamethasone Sodium Phosphate (Decadron) 20 mg STK-MED ONCE .ROUTE ; Start at 07:51; Stop 05/20/18 at 07:52; Status DC Famotidine (Pepcid Vial) 20 mg STK-MED ONCE .ROUTE ; Start 05/20/18 at 07:51; Stop 05/20/18 at 07:52; Status DC Lidocaine HCl (Lidocaine Pf 2% Vial) 5 ml STK-MED ONCE .ROUTE ; Start 05/20/18 at 07:51; Stop 05/20/18 at 07:52; Status DC Ondansetron HCl (Zofran) 4 mg STK-MED ONCE .ROUTE ; Start 05/20/18 at 07:51; Stop 05/20/18 at 07:52; Status DC Fentanyl Citrate (Fentanyl 2ml Vial) 100 mcg STK-MED ONCE .ROUTE ; Start at 07:51; Stop 05/20/18 at 07:52; Status DC Rocuronium Garrard (Zemuron) 50 mg STK-MED ONCE .ROUTE ; Start 05/20/18 at 07:51 ; Stop 05/20/18 at 07:52; Status DC Midazolam HCl (Versed) 2 mg STK-MED ONCE .ROUTE ; Start 05/20/18 at 07:51; Stop 05/20/18 at 07:52; Status DC Remifentanil HCl (Ultiva) 2 mg STK-MED ONCE IV ; Start 05/20/18 at 07:52; Stop 05/20/18 at 07:53; Status DC Propofol 100 ml @ As Directed STK-MED ONCE IV ; Start 05/20/18 at 07:56; Stop 05/20/18 at 07:57; Status DC Ephedrine Sulfate (Akovaz) 50 mg STK-MED ONCE .ROUTE ; Start 05/20/18 at 09:13; Stop 05/20/18 at 09:14; Status DC Vasopressin (Vasostrict) 20 unit STK-MED ONCE .ROUTE ; Start 05/20/18 at 09:43; Stop 05/20/18 at 09:44; Status DC Propofol 50 ml @ As Directed STK-MED ONCE IV ; Start 05/20/18 at 10:48; Stop at 10:49; Status DC Glycopyrrolate (Robinul) 1 mg STK-MED ONCE .ROUTE ; Start 05/20/18 at 11:06; Stop 05/20/18 at 11:07; Status DC Neostigmine Methylsulfate (Bloxiverz) 10 mg STK-MED ONCE .ROUTE ; Start at 11:06; Stop 05/20/18 at 11:07; Status DC Desflurane (Suprane) 90 ml STK-MED ONCE IH ; Start 05/20/18 at 11:08; Stop 05/20 at 11:09; Status DC Remifentanil HCl (Ultiva) 1 mg STK-MED ONCE IV ; Start 05/20/18 at 11:08; Stop 05/20/18 at 11:09; Status DC Ketorolac Tromethamine (Toradol 30mg Vial) 30 mg STK-MED ONCE .ROUTE ; Start at 12:09; Stop 05/20/18 at 12:10; Status DC Ketorolac Tromethamine (Toradol 30mg Vial) 30 mg 1X ONCE IV Last administered on 05/20/18at 12:15; Start 05/20/18 at 12:15; Stop 05/20/18 at 12:16; Status DC Clonazepam (KlonoPIN) 0.5 mg BID PO Last administered on 05/21/18at 12:01; Start 05/20/18 at 21:00 Metoprolol Succinate (Toprol Xl) 100 mg DAILY PO Last administered on at 08:44; Start 05/20/18 at 13:00 Nortriptyline HCl (Pamelor) 1,000 mg HS PO ; Start 05/20/18 at 21:00; Stop 05/20 at 21:00; Status DC Duloxetine HCl (Cymbalta) 60 mg DAILY PO Last administered on 05/21/18at 08:46; Start 05/20/18 at 13:00 Lamotrigine (LaMICtal) 150 mg QHS PO Last administered on 05/20/18at 21:57; Start 05/20/18 at 21:00 Levothyroxine Sodium (Synthroid) 50 mcg DAILY06 PO Last administered on at 05:59; Start 05/21/18 at 06:00 Topiramate (Topamax) 50 mg BID PO Last administered on 05/21/18 08:45; Start 05/20/18 at 12:45 Verapamil HCl (Calan Sr) 120 mg DAILY PO Last administered on 05/21/18 08:45; Start 05/20/18 at 13:00 Lisinopril (Prinivil) 10 mg DAILY PO Last administered on 05/21/18at 08:46; Start 05/20/18 at 13:00 Fentanyl Citrate (Fentanyl 2ml Vial) 50 mcg PRN Q2HR PRN IV SEVERE PAIN Last administered on 05/21/18at 12:21; Start 05/20/18 at 12:30 Al Hydroxide/Mg Hydroxide (Mylanta Plus Xs) 30 ml PRN Q3HRS PRN PO HEARTBURN / GAS; Start 05/20/18 at 12:30 Calcium Carbonate/ Glycine (Tums) 500 mg PRN Q3HRS PRN PO INDIGESTION; Start at 12:30 Diphenhydramine HCl (Benadryl) 25 mg PRN Q6HRS PRN PO ITCHING; Start 05/20/18 at 12:30 Zolpidem Tartrate (Ambien) 5 mg PRN QHS PRN PO INSOMNIA, MAY REPEAT IN 1HR; Start 05/20/18 at 12:30 Naloxone HCl (Narcan) 0.1 mg PRN Q2MIN PRN IV ADMIN; Start 05/20/18 at 12:30 Sodium Chloride (Normal Saline Flush) 3 ml QSHIFT PRN IV AFTER MEDS AND BLOOD DRAWS; Start 05/20/18 at 12:30 Potassium Chloride/Dextrose/ Sod Cl 1,000 ml @ 75 mls/hr [id number] IV Last administered on 05/20/18at 12:26; Start 05/20/18 at 12:26; Stop 05/21/18 at 07:12 ; Status DC Methocarbamol (Robaxin) 750 mg TID PO Last administered on 05/20/18at 15:21; Start 05/20/18 at 14:00; Stop 05/20/18 at 21:09; Status DC Docusate Sodium (Colace) 100 mg BID PO Last administered on 05/21/18at 08:44; Start 05/20/18 at 21:00 Magnesium Hydroxide (Milk Of Magnesia) 2,400 mg PRN Q12HR PRN PO CONSTIPATION; Start 05/20/18 at 12:30 Cefazolin Sodium 1 gm/Dextrose 50 ml @ 100 mls/hr Q8H IV Last administered on 05/21/18 08:47; Start 05/20/18 at 17:00; Stop 05/21/18 at 09:29; Status DC Acetaminophen/ Hydrocodone Bitart (Lortab 7.5/325) 1 tab PRN Q6HRS PRN PO MODERATE PAIN; Start 05/20/18 at 12:45; Stop 05/20/18 at 21:09; Status DC Acetaminophen/ Hydrocodone Bitart (Lortab 7.5/325) 2 tab PRN Q6HRS PRN PO SEVERE PAIN Last administered on 05/20/18 17:16; Start 05/20/18 at 12:45; Stop 05/20/18 at 21:09; Status DC Throat Lozenges (Cepacol Sore Throat Lozenge) 1 roseanne PRN Q2HRS PRN PO SORE THROAT Last administered on 05/21/18 06:16; Start 05/20/18 at 15:30 Ondansetron HCl (Zofran Odt) 4 mg PRN Q6HRS PRN PO NAUSEA/VOMITING Last administered on 05/20/18 18:03; Start 05/20/18 at 18:00 Nortriptyline HCl (Pamelor) 100 mg HS PO Last administered on 05/20/18 21:52; Start 05/20/18 at 21:00 Oxycodone HCl (Roxicodone) 5 mg PRN Q4HRS PRN PO PAIN MILD TO MODERATE Last administered on 05/20/18 21:51; Start 05/20/18 at 21:15; Stop 05/21/18 at 11:17 ; Status DC Oxycodone HCl (Roxicodone) 10 mg PRN Q4HRS PRN PO PAIN SEVERE Last administered on 05/21/18 08:54; Start 05/20/18 at 21:15; Stop 05/21/18 at 11:17 ; Status DC Throat Lozenges (Chloraseptic) 1 spray PRN Q2HR PRN PO SORE THROAT Last administered on 05/21/18at 08:41; Start 05/21/18 at 08:00 Oxycodone/ Acetaminophen (Percocet 7.5/ 325) 1 tab PRN Q4HRS PRN PO PAIN mild to mod Last administered on 05/21/18at 15:27; Start 05/21/18 at 11:15 Oxycodone/ Acetaminophen (Percocet 7.5/ 325) 2 tab PRN Q4HRS PRN PO PAIN SEVERE ; Start 05/21/18 at 11:15 Active Scripts Active Reported Ibuprofen 800 Mg Tablet 800 Mg PO PRN Q6HRS PRN Acetaminophen 500 Mg Tablet 1,000 Mg PO Q4-6HRS PRN Nortriptyline Hcl 25 Mg Capsule 1,000 Mg PO HS Lisinopril 10 Mg Tablet 1 Tab PO DAILY Levothyroxine Sodium 50 Mcg Tablet 50 Mcg PO DAILYAC Topamax (Topiramate) 50 Mg Tablet 1 Tab PO BID Lamictal (Lamotrigine) 150 Mg Tablet 1 Tab PO HS Verapamil Er (Verapamil Hcl) 240 Mg Cap24h.pel 120 Mg PO DAILY Metoprolol Succinate ( Xl ) (Metoprolol Succinate) 100 Mg Tab.er.24h 1 Tab PO DAILY Klonopin (Clonazepam) 0.5 Mg Tablet 0.5 Mg PO BID Cymbalta (Duloxetine Hcl) 60 Mg Capsule. 1 Cap PO DAILY Vitals/I & O Vital Sign - Last 24 Hours 05/20/18 05/20/18 05/20/18 05/20/18 17:16 18:09 18:17 19:30 Temp 97.4 97.4 Pulse 82 Resp 16 16 18 B/P (MAP) 124/76 (92) Pulse Ox 96 O2 Delivery Room Air Room Air Room Air Room Air 05/20/18 05/20/18 05/20/18 05/20/18 20:00 20:26 21:51 22:51 Resp 18 18 18 O2 Delivery Room Air Room Air Room Air Room Air 05/20/18 05/21/18 05/21/18 05/21/18 23:00 00:42 03:10 03:52 Temp 97.6 97.7 97.6 97.7 Pulse 87 79 Resp 18 20 18 18 B/P (MAP) 123/60 (81) 112/48 (69) Pulse Ox 95 96 O2 Delivery Room Air Room Air BiPAP/CPAP BiPAP/CPAP 05/21/18 05/21/18 05/21/18 05/21/18 06:00 07:00 08:44 08:45 Temp 97.8 97.8 Pulse 82 82 82 Resp 20 18 B/P (MAP) 140/77 (98) 140/77 140/77 Pulse Ox 100 O2 Delivery Room Air Room Air 05/21/18 05/21/18 05/21/18 05/21/18 08:46 08:54 09:54 11:00 Temp 97.9 97.9 Pulse 82 76 Resp 20 20 18 B/P (MAP) 140/77 148/82 (104) Pulse Ox 98 O2 Delivery Room Air Room Air Room Air 05/21/18 05/21/18 05/21/18 05/21/18 12:00 12:21 12:51 12:51 Resp 20 20 20 20 O2 Delivery Room Air Room Air Room Air Room Air 05/21/18 15:27 Resp 20 O2 Delivery Room Air Intake and Output 05/20/18 05/20/18 05/21/18 15:00 23:00 07:00 Intake Total 10 ml 1500 ml 300 ml Output Total 20 ml 500 ml 1850 ml Balance -10 ml 1000 ml -1550 ml FARZAD SWAN MD May 21, 2018 16:36
[2018-05-21] MEDS ORDERED: diphenhydrAMINE HCL 25 MG CAPSULE PO PRN (18:45)
[2018-05-21] MEDS ORDERED: diphenhydrAMINE 50 MG/ML VIAL IVP PRN (18:45)
[2018-05-21 19:00] VITALS: BP 118/78
[2018-05-21] MEDS: NORTRIPTYLINE 25 MG CAPSULE PO SCH (20:48)
[2018-05-21] MEDS: lamoTRIgine 100 MG TABLET. PO SCH (20:49)
[2018-05-21 23:00] VITALS: BP 100/46
[2018-05-22 03:00] VITALS: BP 109/64
[2018-05-22] MEDS: LEVOTHYROXINE 50 MCG TABLET PO SCH (06:17)
[2018-05-22] MEDS: oxyCODONE/APAP 7.5/325 1 TAB TABLET PO PRN ×2 (06:17→11:14)
[2018-05-22 07:00] VITALS: BP 108/65
[2018-05-22] MEDS: DOCUSATE SODIUM 100 MG CAPSULE. PO SCH (08:48)
[2018-05-22] MEDS: clonazePAM 0.5 MG TABLET PO SCH (08:53)
[2018-05-22 08:54] VITALS: BP 108/65
[2018-05-22] MEDS: METOPROLOL SUCC 24HR ER 100 MG TAB.ER.24H. PO SCH (08:54)
[2018-05-22] MEDS: TOPIRAMATE 25 MG TABLET. PO SCH (08:54)
[2018-05-22] MEDS: VERAPAMIL SR 120 MG TABLET.ER. PO SCH (08:55)
[2018-05-22] MEDS: DULoxetine HCL 30 MG CAPSULE.DR PO SCH (08:55)
[2018-05-22] MEDS: LISINOPRIL 10 MG TABLET PO SCH (08:55)
--- NOTE | 2018-05-22 09:00 | NUR ---
This nurse discussed with patient BP medications, held all but the beta roberto, will reassess at home after discharge with new pain medication starting last night. This nurse will continue to monitor.
--- NOTE | 2018-05-22 10:20 | NUR ---
This nurse verified discharge instructions with Carri, this nurse will continue to monitor this patient and process the discharge order.
--- NOTE | 2018-05-22 11:20 | NUR ---
This nurse discussed discharge instructions with patient, and son at bedside. Demonstrated the soft collar placement, and answered any questions at this time. Pain medication given before discharge. All belongings were collected and returned to patient, and son. JS Wisdom and JS Abdul assisted patient out via wheelchair to private vehicle.
[2018-05-24] MEDS ORDERED: NORT25CA PO (12:36)
== END 2018-05-22 11:20 | disposition home or self-care (01) ==
LOC: SURG 07:08 → 4 NORTH 12:28
PROVIDERS: ADMIT Neurological Surgery; ATTEND Neurological Surgery
DX: M54.12 Radiculopathy, cervical region (principal); M48.02 Spinal stenosis, cervical region; I10 Essential (primary) hypertension; M25.78 Osteophyte, vertebrae; M19.90 Unspecified osteoarthritis, unspecified site; Z82.0 Family history of epilepsy and other diseases of the nervous system; Z82.49 Family history of ischemic heart disease and other diseases of the circulatory system
CPT/HCPCS: 20931; 20937; 22551; 22552; 22845; 22853; 76000; 81025; 96365; 96366; 96375; 96376; 97161; A7015; C1713; G0378; G0379; J0690; J0696; J0780; J1100; J1170; J1885; J2001; J2250; J2405; J2704; J2710; J3010; J3490; J7030; J7120; Q0162; Q0163

== ENCOUNTER → 2018-05-24 | Outpatient (CLI) | payer OTHER ==
[2018-05-22 08:54] VITALS: BP 108/65
[~2018-05-24] MED LIST changes: -BACITRACIN 50,000 UNIT in IV NORMAL SALINE 1000ML BAG 1,000 ML IRR ONE; +DOCU-109 PO; -IV RINGERS,LACTATED 1000ML 1,000 ML IV SCH; -LIDOCAINE 1% PF 2 ML VIAL. ID PRN; -MORPHINE SULFATE 4 MG/ML VIAL. IV PRN; -ONDANSETRON PF 4 MG/2 ML VIAL. IV PRN; +OXYC1TAB19 PO; -PROCHLORPERAZINE 10 MG/2 ML VIAL. IV PRN; -fentaNYL PF VIAL 100 MCG/2 ML VIAL IV PRN
--- NOTE | 2018-05-24 17:06 | RAD ---
EXAM: AP and lateral views of the cervical spine DATE: 05/24/2018 2:02 PM CLINICAL HISTORY: POST OP CERVICAL FUSION ON 05/20/18, NECK SWELLING COMPARISON: None available. FINDINGS: On the lateral view, the cervical spine is imaged from the skull base to mid C6. Postoperative changes of C3-C5 anterior cervical discectomy and fusion are seen. Vertebral body heights are preserved. No definite hardware complication. Moderate disc height loss at C5-6. There is moderate prevertebral soft tissue swelling, possibly postsurgical. Epiphyses be further assessed, cross-sectional imaging would provide additional details. Mild straightening of the normal cervical lordosis. No significant spondylolisthesis. Normal predental space. IMPRESSION: Postoperative changes of C3-C5 anterior cervical discectomy and fusion. Diffuse prevertebral soft tissue swelling may be postsurgical although fluid collection including seroma, infection or hematoma cannot be excluded by radiographs. If further imaging evaluation is clinically required, cross-sectional imaging such as CT may provide additional details. Electronically signed by: Artis Chamberlain MD (05/24/2018 5:03 PM) [id number]
== END | disposition home or self-care (01) ==
LOC: RAD 12:46
PROVIDERS: ATTEND Neurological Surgery
DX: M54.2 Cervicalgia (principal); R29.890 Loss of height; Z98.890 Other specified postprocedural states
CPT/HCPCS: 72040

== ENCOUNTER 2018-06-12 13:13 | Inpatient (IN) | payer OTHER ==
[~2018-06-12] VITALS: Ht 170.2 cm; Wt 121.3 kg
[2018-06-12 15:35] VITALS: BP 143/90
[2018-06-12] MEDS ORDERED: oxyCODONE/APAP 7.5/325 1 TAB TABLET PO PRN (16:00)
[2018-06-12] MEDS ORDERED: MORPHINE SULFATE 4 MG/ML VIAL. IV PRN (16:00)
[2018-06-12] MEDS ORDERED: NON FORMULARY ITEM (Ondansetron Hcl (Zofran) 8 MG) IVP PRN (16:00)
[2018-06-12] MEDS ORDERED: MORP4CAR IV (16:10)
[2018-06-12] MEDS ORDERED: ARIP15TA3 PO (16:10)
[2018-06-12] MEDS ORDERED: CYCL10TA2 PO (16:10)
[2018-06-12] MEDS ORDERED: ONDA8TAB9 IVP (16:10)
[2018-06-12] MEDS ORDERED: HYDR2TAB31 IVP (16:10)
[2018-06-12] MEDS ORDERED: ONDA4TAB7 IVP (16:10)
[2018-06-12] MEDS ORDERED: MAGN2400 PO (16:10)
[2018-06-12] MEDS ORDERED: CLON0.5T11 PO (16:10)
[2018-06-12] MEDS ORDERED: LISI-334 PO (16:10)
[2018-06-12] MEDS ORDERED: MAGNESIUM HYDROXIDE 2,400 MG/30 ML ORAL.SUSP. PO PRN (16:30)
[2018-06-12] MEDS ORDERED: ONDANSETRON PF 4 MG/2 ML VIAL. IV PRN (16:30)
[2018-06-12] MEDS: CYCLOBENZAPRINE 10 MG TABLET. PO SCH ×2 (16:30→20:52)
[2018-06-12] MEDS ORDERED: ACETAMINOPHEN 500 MG TABLET PO PRN (16:30)
[2018-06-12] MEDS ORDERED: HYDROmorphone 2 MG/ML VIAL IVP PRN (16:30)
[2018-06-12] MEDS: oxyCODONE/APAP 7.5/325 1 TAB TABLET PO PRN (18:59)
[2018-06-12 19:18] VITALS: BP 135/82
--- NOTE | 2018-06-12 19:23 | HP ---
ADMIT DATE: 06/12/2018 HISTORY OF PRESENT ILLNESS: The patient is a 48-year-old female patient who was basically admitted to [facility] in the beginning of 05/2018. She was seen by Dr. Erickson and underwent anterior cervical microdiskectomy of C3-C4, C4-C5, anterior cervical interbody fusion of C3-C4, C4-C5, anterior cervical plate C3-C4-C5. The operation was done with EMG monitoring as well as NIMS monitoring, and motor evoked potentials as well as fluoroscopy. The patient did very well. Unfortunately, the patient fell down stairs a few days ago and she was seen twice at the Emergency Room of [facility]. In fact, she was admitted this morning with the complaint of severe pain in her neck, also soft tissue swelling around her neck and both shoulders, cold sensation in her right upper extremity and left and right flank bruise. She has had a cervical spine x-ray, which showed no evidence of any fracture or dislocation. The prevertebral soft tissue were normal. Her CT scan of the chest, abdomen and pelvis showed no abnormality; however, the patient continued to be extremely concerned about the fall and the pain as well as headache, and therefore a decision was made to transfer her to [facility] to consult Dr. Erickson and perhaps to do an MRI if this can be done without any contraindication. PAST MEDICAL HISTORY: Significant for hypertension, migraine headache, bipolar disorder, hypothyroidism, generalized osteoarthritis. PAST SURGICAL HISTORY: Significant for , cholecystectomy, appendectomy, uterine ablation, bladder sling, and nasal reconstruction. FAMILY HISTORY: Significant for hypertension, heart disease, cancer, Alzheimer disease. SOCIAL HISTORY: She is . She does not smoke, drinks alcohol occasionally. 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 ALLERGIES: SHE IS ALLERGIC TO TETANUS AND DARVOCET. MEDICATIONS: She is currently on following medications: She is on Flexeril 10 mg 3 times a day, metoprolol succinate 100 mg daily, verapamil 240 mg, she takes 120 mg daily; lisinopril 20 mg once a day, hydromorphone 2 mg IV every 2 hours, oxycodone/APAP 7.5/325 one tablet every 6 hours, clonazepam 0.5 mg twice a day, clonazepam 1 mg daily, lamotrigine 150 mg at bedtime, topiramate 50 mg twice a day, duloxetine 60 mg once a day, nortriptyline 100 mg at bedtime, aripiprazole for Abilify 15 mg at bedtime. She is also on Colace 100 mg twice a day, magnesium hydroxide for milk of magnesia at 30 mL p.o. daily p.r.n., ondansetron 4 mg every 4 hours. She is on levothyroxine sodium 50 mcg once a day. PHYSICAL EXAMINATION: GENERAL: On examining her, she was resting slightly propped up in bed, in no apparent distress. There was no pallor, jaundice, cyanosis, or thyromegaly. No jugular venous distension. No lymphedema. VITAL SIGNS: Her heart rate was 70, blood pressure 143/90, temperature was 97.8, respiratory rate was 18 and oxygen saturation was 97%. HEAD, EYES, EARS, NOSE AND THROAT: Showed normocephalic, atraumatic. NECK: Supple. HEART: Showed normal first and second heart sounds. No gallop, rub or murmur. CHEST: Clear to auscultation. No crepitation or rhonchi. ABDOMEN: Distended, soft, nontender. NEUROLOGIC: She is awake, alert, responding appropriately. All cranial nerves intact. She moves extremities without difficulty. She ambulates without assistance or assistive devices. For some reason, her right upper extremity feels cooler than the left upper extremity. She does not have the obvious sign of Raynaud phenomenon and I can feel the radial pulsation without difficulty. PLAN: My plan is to continue with all her medication including pain medication. I will consult Dr. Erickson to evaluate the patient. I am not sure about the MRI, whether there is any metal in her neck that might be incompatible. I will obviously leave that decision to the Neurosurgical Team. ARVIND TORRES MD DR: TATIANNA/ever JOB#: [id number] / [id number]
[2018-06-12] MEDS: NORTRIPTYLINE 25 MG CAPSULE PO SCH (20:51)
[2018-06-12] MEDS: lamoTRIgine 100 MG TABLET. PO SCH (20:52)
[2018-06-12] MEDS: ARIPiprazole 5 MG TABLET PO SCH (20:52)
[2018-06-12] MEDS: TOPIRAMATE 25 MG TABLET. PO SCH (20:52)
[2018-06-12] MEDS: DOCUSATE SODIUM 100 MG CAPSULE. PO SCH (20:52)
[2018-06-12] MEDS: clonazePAM 0.5 MG TABLET PO SCH (20:52)
[2018-06-12 23:38] VITALS: BP 114/75
[2018-06-13 03:00] VITALS: BP 106/72
[2018-06-13] MEDS: LEVOTHYROXINE 50 MCG TABLET PO SCH (06:38)
[2018-06-13 07:00] VITALS: BP 109/68
[2018-06-13 08:32] LABS: BASO % 1 % (0-3); EOS # 0.1 x10^3/uL (0.0-0.7); EOS % 2 % (0-3); HEMATOCRIT 37.6 % (36.0-47.0); HEMOGLOBIN 12.4 g/dL (12.0-15.5); LYMPH # 1.5 x10^3/uL (1.0-4.8); LYMPH % 29 % (24-48); MEAN CORPUSCULAR HEMOGLOBIN 30 pg (25-35); MEAN CORPUSCULAR HGB CONC 33 g/dL (31-37); MEAN CORPUSCULAR VOLUME 92 fL (79-100); MONO # 0.4 x10^3/uL (0.0-1.1); MONO % 7 % (0-9); NEUT # 3.1 x10^3uL (1.8-7.7); NEUT % 62 % (31-73); PLATELET COUNT 254 x10^3/uL (140-400); RED BLOOD COUNT 4.07 x10^6/uL (3.50-5.40); RED CELL DISTRIBUTION WIDTH 14.5 % (11.5-14.5)
[2018-06-13] MEDS: clonazePAM 0.5 MG TABLET PO SCH ×2 (08:45→21:32)
[2018-06-13] MEDS: TOPIRAMATE 25 MG TABLET. PO SCH ×2 (08:45→21:32)
[2018-06-13] MEDS: DOCUSATE SODIUM 100 MG CAPSULE. PO SCH ×2 (08:45→21:32)
[2018-06-13] MEDS: DULoxetine HCL 30 MG CAPSULE.DR PO SCH (08:46)
[2018-06-13] MEDS: METOPROLOL SUCC 24HR ER 100 MG TAB.ER.24H. PO SCH (08:46)
[2018-06-13 08:47] LABS: ALBUMIN/GLOBULIN RATIO 0.9 (1.0-1.7); CALCIUM 8.7 mg/dL (8.5-10.1); CREATININE 0.9 mg/dL (0.6-1.0); GFR 67.1; POTASSIUM 3.8 mmol/L (3.5-5.1); TOTAL BILIRUBIN 0.3 mg/dL (0.2-1.0); TOTAL PROTEIN 6.4 g/dL (6.4-8.2)
[2018-06-13] MEDS: CYCLOBENZAPRINE 10 MG TABLET. PO SCH ×3 (08:49→21:32)
[2018-06-13] MEDS: VERAPAMIL SR 120 MG TABLET.ER. PO SCH (08:51)
[2018-06-13] MEDS: LISINOPRIL 20 MG TABLET PO SCH (08:54)
[2018-06-13] MEDS ORDERED: clonazePAM 0.5 MG TABLET PO PRN (09:00)
--- NOTE | 2018-06-13 09:57 | PDOC ---
PROGRESS NOTES Subjective Subjective feels better today slept well Objective Objective Vital Signs Date Time Temp Pulse Resp B/P (MAP) Pulse Ox O2 Delivery O2 Flow Rate FiO2 06/13/18 08:54 109/62 06/13/18 08:46 69 06/13/18 07:00 98.1 18 98 Room Air 98.1 Intake and Output 06/13/18 07:00 Intake Total 1490 ml Balance 1490 ml Intake Oral 1490 ml # Voids 3 Physical Exam Abdomen: Normal bowel sounds, Soft Heart: Regular rate, Normal S1, Normal S2 Extremities: No clubbing General: Alert HEENT: Atraumatic Lungs: Clear to auscultation MUSCULOSKELETAL: No deformity Psych/Mental Status: Mental status NL Skin: No breakdown Assessment Assessment IMP: s/p Fall at home recent neck surgery bruised PLAN: await neuro surgical consult pt want to go home after seen by neuro surgery pt/ot Comment Review of Relevant I have reviewed the following items rios (where applicable) has been applied. Labs Laboratory Tests Test 06/13/18 07:57 White Blood Count 5.0 x10^3/uL (4.0-11.0) Red Blood Count 4.07 x10^6/uL (3.50-5.40) Hemoglobin 12.4 g/dL (12.0-15.5) Hematocrit 37.6 % (36.0-47.0) Mean Corpuscular Volume 92 fL (79-100) Mean Corpuscular Hemoglobin 30 pg (25-35) Mean Corpuscular Hemoglobin Concent 33 g/dL (31-37) Red Cell Distribution Width 14.5 % (11.5-14.5) Platelet Count 254 x10^3/uL (140-400) Neutrophils (%) (Auto) 62 % (31-73) Lymphocytes (%) (Auto) 29 % (24-48) Monocytes (%) (Auto) 7 % (0-9) Eosinophils (%) (Auto) 2 % (0-3) Basophils (%) (Auto) 1 % (0-3) Neutrophils # (Auto) 3.1 x10^3uL (1.8-7.7) Lymphocytes # (Auto) 1.5 x10^3/uL (1.0-4.8) Monocytes # (Auto) 0.4 x10^3/uL (0.0-1.1) Eosinophils # (Auto) 0.1 x10^3/uL (0.0-0.7) Basophils # (Auto) 0.0 x10^3/uL (0.0-0.2) Sodium Level 142 mmol/L (136-145) Potassium Level 3.8 mmol/L (3.5-5.1) Chloride Level 105 mmol/L (98-107) Carbon Dioxide Level 27 mmol/L (21-32) Anion Gap 10 (6-14) Blood Urea Nitrogen 8 mg/dL (7-20) Creatinine 0.9 mg/dL (0.6-1.0) Estimated GFR (Cockcroft-Gault) 67.1 BUN/Creatinine Ratio 9 (6-20) Glucose Level 84 mg/dL (70-99) Calcium Level 8.7 mg/dL (8.5-10.1) Total Bilirubin 0.3 mg/dL (0.2-1.0) Aspartate Amino Transf (AST/SGOT) 20 U/L (15-37) Alanine Aminotransferase (ALT/SGPT) 37 U/L (14-59) Alkaline Phosphatase 111 U/L (46-116) Total Protein 6.4 g/dL (6.4-8.2) Albumin 3.0 g/dL (3.4-5.0) Albumin/Globulin Ratio 0.9 (1.0-1.7) Medications Current Medications Acetaminophen (Tylenol) 1,000 mg PRN Q4HRS PRN PO MILD PAIN / TEMP; Start 06/12 at 16:30 Aripiprazole (Abilify) 15 mg QHS PO Last administered on 06/12/18 20:52; Start 06/12/18 at 21:00 Clonazepam (KlonoPIN) 0.5 mg BID PO Last administered on 06/13/18 08:45; Start 06/12/18 at 21:00 Clonazepam (KlonoPIN) 0.5 mg PRN DAILY PRN PO ANXIETY / AGITATION; Start at 09:00 Cyclobenzaprine HCl (Flexeril) 10 mg TID PO Last administered on 06/12/18 20: 52; Start 06/12/18 at 16:30 Docusate Sodium (Colace) 100 mg BID PO Last administered on 06/13/18 08:45; Start 06/12/18 at 21:00 Duloxetine HCl (Cymbalta) 60 mg DAILY PO Last administered on 06/13/18 08:46; Start 06/13/18 at 09:00 Hydromorphone HCl (Dilaudid) 2 mg PRN Q2HRS PRN IVP PAIN, 1st CHOICE; Start 01/21 at 16:30 Lamotrigine (LaMICtal) 150 mg QHS PO Last administered on 06/12/18at 20:52; Start 06/12/18 at 21:00 Levothyroxine Sodium (Synthroid) 50 mcg DAILY06 PO Last administered on 06:38; Start 06/13/18 at 06:00 Lisinopril (Prinivil) 20 mg DAILY PO Last administered on 06/13/18 08:54; Start 06/13/18 at 09:00 Magnesium Hydroxide (Milk Of Magnesia) 2,400 mg PRN QHS PRN PO CONSTIPATION; Start 06/12/18 at 16:30 Metoprolol Succinate (Toprol Xl) 100 mg DAILY PO Last administered on 08:46; Start 06/13/18 at 09:00 Morphine Sulfate (Morphine Sulfate) 4 mg PRN Q4HRS PRN IV PAIN, 2nd CHOICE; Start 06/12/18 at 16:00 Non-Formulary Medication (Ondansetron Hcl (Zofran)) 8 mg Q6HRS PRN IVP NAUSEA/ VOMITING; Start 06/12/18 at 16:00; Status UNV Nortriptyline HCl (Pamelor) 100 mg QHS PO Last administered on 06/12/18at 20:51 ; Start 06/12/18 at 21:00 Ondansetron HCl (Zofran) 4 mg PRN Q4HRS PRN IV NAUSEA/VOMITING; Start 06/12/18 at 16:30 Oxycodone/ Acetaminophen (Percocet 7.5/ 325) 1 tab PRN Q6HRS PRN PO PAIN; Start 06/12/18 at 16:00; Status UNV Oxycodone/ Acetaminophen (Percocet 7.5/ 325) 1 tab PRN Q6HRS PRN PO PAIN Last administered on 06/12/18at 18:59; Start 06/12/18 at 16:30 Topiramate (Topamax) 50 mg BID PO Last administered on 06/13/18at 08:45; Start 06/12/18 at 21:00 Verapamil HCl (Calan Sr) 120 mg DAILY PO Last administered on 06/13/18at 08:51; Start 06/13/18 at 09:00 Vitals/I & O Vital Sign - Last 24 Hours 06/12/18 06/12/18 06/12/18 06/12/18 15:30 15:35 18:59 19:18 Temp 97.8 97.9 97.8 97.9 Pulse 70 65 Resp 18 18 20 B/P (MAP) 143/90 (107) 135/82 (99) Pulse Ox 97 96 O2 Delivery Room Air Room Air Room Air Room Air 06/12/18 06/12/18 06/12/18 06/13/18 20:00 20:02 23:38 03:00 Temp 97.9 98.3 97.9 98.3 Pulse 67 69 Resp 17 18 B/P (MAP) 114/75 (88) 106/72 (83) Pulse Ox 96 99 100 O2 Delivery Room Air Room Air Room Air Room Air 06/13/18 06/13/18 06/13/18 06/13/18 07:00 08:46 08:51 08:54 Temp 98.1 98.1 Pulse 74 69 Resp 18 B/P (MAP) 109/68 (82) 109/68 109/68 109/62 Pulse Ox 98 O2 Delivery Room Air Intake and Output 06/12/18 06/12/18 06/13/18 15:00 23:00 07:00 Intake Total 740 ml 750 ml Balance 740 ml 750 ml ELIZABETH HARRELL MD Jun 13, 2018 09:57
[2018-06-13 11:00] VITALS: BP 106/61
--- NOTE | 2018-06-13 11:50 | NUR ---
SW following for discharge planning. Discussed with RN. RN advised no SW needs at this time and anticipates a possible discharge home today with self care. SW will continue to follow.
[2018-06-13 15:00] VITALS: BP 123/76
--- NOTE | 2018-06-13 16:54 | RAD ---
CT of the cervical spine without contrast, 06/13/2018: HISTORY: Recent fall, recent cervical spine surgery Noncontrast scans were obtained with multiplanar reconstructions produced. There is an anterior fixation plate attached to the C3, C4 and C5 vertebral bodies via 2 screws at each level. Disc spacers are present at C3-4 and C4-5. Vertebral body alignment through this region appears anatomic. There are moderate scattered posterior spurs throughout the cervical spine. There are mild degenerative changes involving multiple facet joints bilaterally. No fracture or subluxation is evident. At C2-3 there is mild posterior disc bulging. The central spinal canal and neural foramina are well-maintained. At and inferior to the C3-4 level artifacts arising from the surgical implants and the patient shoulders degrade image quality. No high-grade central spinal stenosis is evident. At C3-4 and C4-5 there is mild to moderate right foraminal narrowing due to spurring. No significant paraspinous hematoma or mass is evident. IMPRESSION: 1. Anterior spinal fusion and instrumentation from C3 through C5. 2. Moderate scattered degenerative changes. 3. No acute bony abnormality is detected. PQRS Compliance Statement: One or more of the following individualized dose reduction techniques were utilized for this examination: 1. Automated exposure control 2. Adjustment of the mA and/or kV according to patient size 3. Use of iterative reconstruction technique Electronically signed by: Jovanny James MD (06/13/2018 4:50 PM) [facility]
[2018-06-13] MEDS ORDERED: FLUCONAZOLE 100 MG TABLET. PO ONE ×2 (17:00→17:30)
[2018-06-13] MEDS: NYSTATIN TOPICAL POWDER 15GM BOTTLE. TP SCH (17:25)
[2018-06-13 19:30] VITALS: BP 124/72
[2018-06-13] MEDS: ARIPiprazole 5 MG TABLET PO SCH (21:32)
[2018-06-13] MEDS: lamoTRIgine 100 MG TABLET. PO SCH (21:32)
[2018-06-13] MEDS: NORTRIPTYLINE 25 MG CAPSULE PO SCH (21:32)
[2018-06-13] MEDS: oxyCODONE/APAP 7.5/325 1 TAB TABLET PO PRN (21:33)
[2018-06-13 23:30] VITALS: BP 98/51
[2018-06-14 03:30] VITALS: BP 97/57
[2018-06-14 07:00] VITALS: BP 134/80
[2018-06-14] MEDS: LEVOTHYROXINE 50 MCG TABLET PO SCH (07:04)
[2018-06-14] MEDS: METOPROLOL SUCC 24HR ER 100 MG TAB.ER.24H. PO SCH (08:59)
[2018-06-14] MEDS: CYCLOBENZAPRINE 10 MG TABLET. PO SCH (09:00)
[2018-06-14] MEDS: DULoxetine HCL 30 MG CAPSULE.DR PO SCH (09:00)
[2018-06-14] MEDS: clonazePAM 0.5 MG TABLET PO SCH (09:00)
[2018-06-14] MEDS: VERAPAMIL SR 120 MG TABLET.ER. PO SCH (09:00)
[2018-06-14] MEDS: NYSTATIN TOPICAL POWDER 15GM BOTTLE. TP SCH (09:01)
[2018-06-14] MEDS: DOCUSATE SODIUM 100 MG CAPSULE. PO SCH (09:01)
[2018-06-14] MEDS: TOPIRAMATE 25 MG TABLET. PO SCH (09:01)
[2018-06-14] MEDS: LISINOPRIL 20 MG TABLET PO SCH (09:01)
--- NOTE | 2018-06-14 10:15 | PDOC ---
Provider Note Provider Note late entry- patient seen at 1430 06/13/18 ACDF approximately 1 month ago Fell on Wednesday and c/o increased neck and shoulder pain Neuro intact will order cervical CT, if ok then she may dc and start PT as scheduled ARELY ADAMES APRN Jun 14, 2018 10:15
--- NOTE | 2018-06-14 10:25 | PDOC ---
PROGRESS NOTES Subjective Subjective feels better today Objective Objective Vital Signs Date Time Temp Pulse Resp B/P (MAP) Pulse Ox O2 Delivery O2 Flow Rate FiO2 06/14/18 09:01 78 134/80 06/14/18 08:00 Room Air 06/14/18 07:00 97.6 18 99 97.6 Intake and Output 06/14/18 06:59 Intake Total 1750 ml Balance 1750 ml Intake Oral 1750 ml # Voids 5 Physical Exam Abdomen: Normal bowel sounds, Soft Heart: Regular rate, Normal S1, Normal S2 Extremities: No clubbing General: Alert HEENT: Atraumatic Lungs: Clear to auscultation MUSCULOSKELETAL: No deformity Psych/Mental Status: Mental status NL Skin: No breakdown Assessment Assessment IMP: s/p Fall at home recent neck surgery bruised lower back PLAN: appreciate neuro surgical consult pt want to go home after seen by neuro surgery pt/ot ct neck done CT IMPRESSION: 1. Anterior spinal fusion and instrumentation from C3 through C5. 2. Moderate scattered degenerative changes. 3. No acute bony abnormality is detected. d/c home later today out pt PT Comment Review of Relevant I have reviewed the following items rios (where applicable) has been applied. Medications Current Medications Fluconazole (Diflucan) 150 mg 1X ONCE PO Last administered on 06/13/18at 17:24 ; Start 06/13/18 at 17:30; Stop 06/13/18 at 17:31; Status DC Fluconazole (Diflucan) 200 mg 1X ONCE PO ; Start 06/13/18 at 17:00; Stop at 17:13; Status DC Nystatin (Nystop) 1 lakeisha BID TP Last administered on 06/14/18at 09:01; Start 02/21 at 21:00 Vitals/I & O Vital Sign - Last 24 Hours 06/13/18 06/13/18 06/13/18 06/13/18 11:00 15:00 19:30 21:33 Temp 98.1 98.0 98.0 98.1 98.0 98.0 Pulse 76 70 77 Resp 18 20 16 B/P (MAP) 106/61 (76) 123/76 (92) 124/72 (89) Pulse Ox 100 100 96 O2 Delivery Room Air Room Air Room Air Room Air 06/13/18 06/13/18 06/14/18 06/14/18 22:40 23:30 03:30 07:00 Temp 98.1 98.1 97.6 98.1 98.1 97.6 Pulse 77 78 78 Resp 16 16 18 B/P (MAP) 98/51 (67) 97/57 (70) 134/80 (98) Pulse Ox 95 96 99 O2 Delivery Room Air Room Air Room Air Room Air 06/14/18 06/14/18 06/14/18 06/14/18 08:00 08:59 09:00 09:01 Pulse 78 78 78 B/P (MAP) 134/80 134/80 134/80 O2 Delivery Room Air Intake and Output 06/13/18 06/13/18 06/14/18 14:59 22:59 06:59 Intake Total 800 ml 500 ml 450 ml Balance 800 ml 500 ml 450 ml ELIZABETH HARRELL MD Jun 14, 2018 10:25
[2018-06-14] MEDS ORDERED: NYST60PO TP (10:29)
[2018-06-14 11:00] VITALS: BP 103/68
== END 2018-06-14 12:20 | disposition home or self-care (01) | DRG 552 ==
LOC: 6 SOUTH 15:35 → 5 SOUTH 23:27
PROVIDERS: ADMIT Internal Medicine; ATTEND Internal Medicine
DX: M54.2 Cervicalgia (principal); I10 Essential (primary) hypertension; E03.9 Hypothyroidism, unspecified; M15.9 Polyosteoarthritis, unspecified; F31.9 Bipolar disorder, unspecified; G43.909 Migraine, unspecified, not intractable, without status migrainosus; W10.9XXA Fall (on) (from) unspecified stairs and steps, initial encounter; Z82.49 Family history of ischemic heart disease and other diseases of the circulatory system; Z82.0 Family history of epilepsy and other diseases of the nervous system; Z98.1 Arthrodesis status; Y92.009 Unspecified place in unspecified non-institutional (private) residence as the place of occurrence of the external cause
CPT/HCPCS: 36415; 72125; 80053; 85025; 97110; 97530

== ENCOUNTER → 2018-06-22 | Outpatient (CLI) | payer OTHER ==
[2018-06-14 11:00] VITALS: BP 103/68
[~2018-06-22] MED LIST changes: +CLON0.5T11 PO; +CYCL10TA2 PO; +HYDR2TAB31 IVP; +LISI-334 PO; +MAGN2400 PO; +MORP4CAR IV; +NYST60PO TP; +ONDA4TAB7 IVP; +ONDA8TAB9 IVP
[2018-06-22 11:11] LABS: BASO % 1 % (0-3); EOS # 0.1 x10^3/uL (0.0-0.7); EOS % 1 % (0-3); HEMATOCRIT 39.4 % (36.0-47.0); HEMOGLOBIN 13.1 g/dL (12.0-15.5); LYMPH # 1.8 x10^3/uL (1.0-4.8); LYMPH % 26 % (24-48); MEAN CORPUSCULAR HEMOGLOBIN 31 pg (25-35); MEAN CORPUSCULAR HGB CONC 33 g/dL (31-37); MEAN CORPUSCULAR VOLUME 92 fL (79-100); MONO # 0.5 x10^3/uL (0.0-1.1); MONO % 8 % (0-9); NEUT # 4.4 x10^3uL (1.8-7.7); NEUT % 65 % (31-73); PLATELET COUNT 281 x10^3/uL (140-400); RED BLOOD COUNT 4.29 x10^6/uL (3.50-5.40); WHITE BLOOD COUNT 6.7 x10^3/uL (4.0-11.0)
--- NOTE | 2018-06-22 16:13 | RAD ---
DATE: 06/22/2018 EXAM: MAMMO [facility] SCREENING BILATERAL HISTORY: Routine screening. COMPARISON: Previous mammogram from 2016 This study was interpreted with the benefit of Computerized Aided Detection (CAD). FINDINGS: Breast Density: SCATTERED The breast parenchyma shows scattered fibroglandular densities. Breast parenchyma level B. The skin and nipples are within normal limits. No suspicious calcifications, spiculated mass or area of architectural distortion.. IMPRESSION: No mammographic evidence of malignancy. BI-RADS CATEGORY: 2 BENIGN FINDING(S) RECOMMENDED FOLLOW-UP: 12M 12 MONTH FOLLOW-UP PQRS compliance statement: Patient information was entered into a reminder system with a target due date for the next mammogram. Mammography is a sensitive method for finding small breast cancers, but it does not detect them all and is not a substitute for careful clinical examination. A negative mammogram does not negate a clinically suspicious finding and should not result in delay in biopsying a clinically suspicious abnormality. "Our facility is accredited by the [employer] Mammography Program."
[2018-06-22 18:12] LABS: ESTRADIOL LEVEL 305.5 pg/mL (.); FSH 6.6 mIU/mL (.)
[2018-06-22 23:12] LABS: HEMOGLOBIN A1C 5.3 % (4.8-5.6)
== END | disposition home or self-care (01) ==
LOC: MAMMO 09:54
DX: Z12.31 Encounter for screening mammogram for malignant neoplasm of breast (principal); N91.2 Amenorrhea, unspecified
CPT/HCPCS: 36415; 77063; 77067; 82670; 83001; 83002; 83036; 84443; 85025

== ENCOUNTER → 2018-06-28 | Outpatient (CLI) | payer OTHER ==
[2018-06-14 11:00] VITALS: BP 103/68
== END | disposition home or self-care (01) ==
LOC: SPEC 16:39
DX: Z01.419 Encounter for gynecological examination (general) (routine) without abnormal findings (principal)
CPT/HCPCS: 88175

== ENCOUNTER → 2018-07-23 | Outpatient (CLI) | payer OTHER ==
--- NOTE | 2018-07-23 14:03 | RAD ---
Exam performed: X-ray cervical spine. HISTORY: Cervical fusion 2 months ago. DATE OF SERVICE: 07/23/2018. COMPARISON: X-ray cervical spine from 05/24/2018. FINDINGS: AP, lateral and swimmer's view of the cervical spine were obtained. There are postoperative changes of cervical spinal fusion involving C3-C5. Anterior plate and bilateral screws are seen. Intervertebral disc spaces are noted. Alignment appears similar. Odontoid process is not well seen. The lung apices are clear. IMPRESSION: Stable postoperative changes of anterior cervical fusion involving C3-C5. No acute abnormality seen. Electronically signed by: Charito Rosenberg MD (07/23/2018 2:00 PM) [facility]
== END | disposition home or self-care (01) ==
LOC: RAD 13:12
PROVIDERS: ATTEND Neurological Surgery
DX: M43.22 Fusion of spine, cervical region (principal)
CPT/HCPCS: 72040

== ENCOUNTER 2018-08-01 17:26 | Emergency (ER) | payer OTHER ==
[~2018-08-01] VITALS: Ht 170.2 cm; Wt 121.3 kg
[2018-08-01 18:07] LABS: BASO % 0 % (0-3); EOS # 0.1 x10^3/uL (0.0-0.7); EOS % 1 % (0-3); HEMATOCRIT 41.5 % (36.0-47.0); HEMOGLOBIN 13.9 g/dL (12.0-15.5); LYMPH # 2.6 x10^3/uL (1.0-4.8); LYMPH % 36 % (24-48); MEAN CORPUSCULAR HEMOGLOBIN 31 pg (25-35); MEAN CORPUSCULAR HGB CONC 34 g/dL (31-37); MEAN CORPUSCULAR VOLUME 91 fL (79-100); MONO # 0.5 x10^3/uL (0.0-1.1); MONO % 7 % (0-9); NEUT # 4.1 x10^3uL (1.8-7.7); NEUT % 57 % (31-73); PLATELET COUNT 269 x10^3/uL (140-400); RED BLOOD COUNT 4.54 x10^6/uL (3.50-5.40); RED CELL DISTRIBUTION WIDTH 13.7 % (11.5-14.5); WHITE BLOOD COUNT 7.3 x10^3/uL (4.0-11.0)
[2018-08-01 18:08] LABS: BILIRUBIN,URINE NEGATIVE (NEG); CLARITY,URINE CLEAR; COLOR,URINE YELLOW; NITRITE,URINE NEGATIVE (NEG); PH,URINE 6.5; PROTEIN,URINE NEGATIVE (NEG-TRACE); UROBILINOGEN,URINE 0.2 mg/dL (0.2 mg/dL)
[2018-08-01 18:13] LABS: BACTERIA,URINE 0 /HPF (0-FEW); RBC,URINE 0 /HPF (0-2); SQUAMOUS EPITHELIAL CELL,UR FEW /LPF; WBC,URINE 0 /HPF (0-4)
[2018-08-01 18:17] LABS: CALCIUM 9.9 mg/dL (8.5-10.1); CREATININE 1.1 mg/dL (0.6-1.0); GFR 53.2; POTASSIUM 3.7 mmol/L (3.5-5.1)
[2018-08-01 18:22] LABS: ALBUMIN 3.9 g/dL (3.4-5.0); ALBUMIN/GLOBULIN RATIO 1.1 (1.0-1.7); MAGNESIUM 2.1 mg/dL (1.8-2.4); TOTAL BILIRUBIN 0.3 mg/dL (0.2-1.0); TOTAL PROTEIN 7.5 g/dL (6.4-8.2)
--- NOTE | 2018-08-01 19:07 | RAD ---
CHEST PA LATERAL History: CHEST PRESSURE, SOA, BILATERAL LEG SWELLING X3 DAYS. No prior study for comparison. The heart size is not enlarged. No evidence of pneumothorax. No pleural effusion. No evidence of focal airspace consolidation. Regional skeleton grossly intact. IMPRESSION: No evidence of consolidating infiltrate. Electronically signed by: Rogelio Wakefield MD (08/01/2018 7:04 PM) [facility]
[2018-08-01] MEDS ORDERED: IV NORMAL SALINE 1000ML BAG 1,000 ML IV ONE (20:00)
--- NOTE | 2018-08-01 20:09 | PHYS DOC ---
Past Medical History Past Medical History: Bipolar, Hypertension, Migraines Additional Past Medical Histor: sleep apnea (GABRIELE JONES APRN) Past Surgical History: Appendectomy, Cholecystectomy Additional Past Surgical Histo: bladder sling, endometrial ablasion, spinal surgery (GABRIELE JONES APRN) Alcohol Use: Rarely Drug Use: None (GABRIELE JONES APRN) Adult General Chief Complaint Chief Complaint: CHEST PAIN HPI HPI 48-year-old female presents to ER via POV for complaints of shortness of air. Patient reports she found a tick on her right abdomen and was seen by her doctor and started on Prednisone/doxycycline last Wednesday- and has taken 7 pills of Doxyc. Patient was also placed on Lasix 20 mg and has taken that for 2 days as she felt her hands and feet were swollen- reports improved sxs. Patient denies having any chest pain but states she has felt chest heaviness this morning. Patient also reports she was having heavy menstrual cycles and so just completed a 10 day course 1 week ago of progesterone. LMP was 1 week ago. She denies fever, cough, cold or flu illness, abdominal pain, urinary sxs, or N/V/D. She does reports she feels anxious w/ongoing sxs and recent medical issues. Patient reported she had had a C3-C5 discectomy on 05/20/18. Denies any complications. Patient denies any history of being a smoker. She denies recent travel. (GABRIELE JONES APRN) Review of Systems Review of Systems Constitutional: Denies fever or chills [] Eyes: Denies change in visual acuity, redness, or eye pain [] HENT: Denies nasal congestion or sore throat [] Respiratory: Denies cough. Reports SOA- worse w/walking/exertion Cardiovascular: Reports chest heaviness this morning GI: Denies abdominal pain, nausea, vomiting, bloody stools or diarrhea [] : Denies dysuria or hematuria [] Musculoskeletal: Denies back pain or joint pain. Reports felt her legs were swollen on Wednesday- reporting after Lasix x2 days swelling decreased Integument: Denies rash or skin lesions [] Neurologic: Denies headache, focal weakness or sensory changes [] Endocrine: Denies polyuria or polydipsia [] Psych: Reports anxiety which has increased w/sxs All other systems were reviewed and found to be within normal limits, except as documented in this note. (GABRIELE JONES APRN) Current Medications Current Medications Current Medications Medications (Trade) Dose Ordered Sig/Rachele Start Time Stop Time Status Last Admin Dose Admin Info (CONTRAST GIVEN -- Rx MONITORING) 1 each PRN DAILY PRN 08/01/18 20:15 08/01/18 21:36 DC Iohexol (Omnipaque 350 Mg/ml) 90 ml 1X ONCE 08/01/18 20:15 08/01/18 20:16 DC 08/01/18 20:20 90 ML Sodium Chloride 1,000 ml @ 1,000 mls/hr 1X ONCE 08/01/18 20:00 08/01/18 20:59 DC 08/01/18 20:44 1,000 MLS/HR (IRMA PATRICK MD) Allergies Allergies Allergies Coded Allergies Type Severity Reaction Last Updated Verified Tetanus Vaccines and Toxoid Allergy Intermediate 05/20/18 Yes progesterone Allergy Intermediate 05/20/18 Yes propoxyphene Allergy Intermediate 05/20/18 Yes (IRMA PATRICK MD) Physical Exam Physical Exam Constitutional: Well developed, well nourished, no acute distress, non-toxic appearance. Flushed/red facial skin HENT: Normocephalic, atraumatic, bilateral ears normal, mucous membranes pink/dry, nose normal. [] Eyes: Pupils equal, conjunctiva normal, no discharge. [] Neck: Normal range of motion, no tenderness, supple, no stridor. [] Cardiovascular: Heart rate regular rhythm, no murmur [] Lungs & Thorax: Bilateral breath sounds clear to auscultation- resp. equal/nonlabored Abdomen: Bowel sounds normal, soft, no tenderness, no masses, no pulsatile masses. [] Skin: Warm, dry, no erythema, no rash. [] Back: No tenderness, no CVA tenderness. [] Extremities: No tenderness, no cyanosis, no clubbing, ROM intact, no edema. [] Neurologic: Alert and oriented X 3, normal motor function, normal sensory function, no focal deficits noted. [] Psychologic: Affect normal, judgement normal, mood anxious w/discussion regarding ongoing sxs [] (GABRIELE JONES APRN) Current Patient Data Vital Signs Vital Signs Date Time Temp Pulse Resp B/P (MAP) Pulse Ox O2 Delivery O2 Flow Rate FiO2 08/01/18 21:26 74 19 112/80 (91) 100 Room Air 08/01/18 17:54 98.5 98.5 (IRMA PATRICK MD) Lab Values Laboratory Tests Test 08/01/18 17:35 08/01/18 17:50 Urine Collection Type Unknown Urine Color Yellow Urine Clarity Clear Urine pH 6.5 Urine Specific [place] <=1.005 Urine Protein Negative mg/dL (NEG-TRACE) Urine Glucose (UA) Negative mg/dL (NEG) Urine Ketones (Stick) Negative mg/dL (NEG) Urine Blood Negative (NEG) Urine Nitrite Negative (NEG) Urine Bilirubin Negative (NEG) Urine Urobilinogen Dipstick 0.2 mg/dL (0.2 mg/dL) Urine Leukocyte Esterase Negative (NEG) Urine RBC 0 /HPF (0-2) Urine WBC 0 /HPF (0-4) Urine Squamous Epithelial Cells Few /LPF Urine Bacteria 0 /HPF (0-FEW) White Blood Count 7.3 x10^3/uL (4.0-11.0) Red Blood Count 4.54 x10^6/uL (3.50-5.40) Hemoglobin 13.9 g/dL (12.0-15.5) Hematocrit 41.5 % (36.0-47.0) Mean Corpuscular Volume 91 fL (79-100) Mean Corpuscular Hemoglobin 31 pg (25-35) Mean Corpuscular Hemoglobin Concent 34 g/dL (31-37) Red Cell Distribution Width 13.7 % (11.5-14.5) Platelet Count 269 x10^3/uL (140-400) Neutrophils (%) (Auto) 57 % (31-73) Lymphocytes (%) (Auto) 36 % (24-48) Monocytes (%) (Auto) 7 % (0-9) Eosinophils (%) (Auto) 1 % (0-3) Basophils (%) (Auto) 0 % (0-3) Neutrophils # (Auto) 4.1 x10^3uL (1.8-7.7) Lymphocytes # (Auto) 2.6 x10^3/uL (1.0-4.8) Monocytes # (Auto) 0.5 x10^3/uL (0.0-1.1) Eosinophils # (Auto) 0.1 x10^3/uL (0.0-0.7) Basophils # (Auto) 0.0 x10^3/uL (0.0-0.2) D-Dimer ([place]) 0.49 ug/mlFEU (0.00-0.50) Sodium Level 139 mmol/L (136-145) Potassium Level 3.7 mmol/L (3.5-5.1) Chloride Level 100 mmol/L (98-107) Carbon Dioxide Level 28 mmol/L (21-32) Anion Gap 11 (6-14) Blood Urea Nitrogen 11 mg/dL (7-20) Creatinine 1.1 mg/dL (0.6-1.0) H Estimated GFR (Cockcroft-Gault) 53.2 BUN/Creatinine Ratio 10 (6-20) Glucose Level 106 mg/dL (70-99) H Calcium Level 9.9 mg/dL (8.5-10.1) Magnesium Level 2.1 mg/dL (1.8-2.4) Total Bilirubin 0.3 mg/dL (0.2-1.0) Aspartate Amino Transferase (AST) 19 U/L (15-37) Alanine Aminotransferase (ALT) 28 U/L (14-59) Alkaline Phosphatase 122 U/L (46-116) H Creatine Kinase 115 U/L (26-192) Creatine Kinase MB (Mass) 2.2 ng/mL (0.0-3.6) Creatine Kinase MB Relative Index 1.9 % (0-4) Troponin I Quantitative < 0.017 ng/mL (0.000-0.055) OX-Dxo-Q-Type Natriuretic Peptide 17 pg/mL (0-124) Total Protein 7.5 g/dL (6.4-8.2) Albumin 3.9 g/dL (3.4-5.0) Albumin/Globulin Ratio 1.1 (1.0-1.7) Laboratory Tests 08/01/18 17:50 Laboratory Tests 08/01/18 17:50 (IRMA PATRICK MD) EKG EKG EKG obtained 08/01/18 at [address] Patrick Sinus rhythm Rate 93 No STEMI (REFGABRIELE BERGER APRN) Radiology/Procedures Radiology/Procedures PROCEDURE: CHEST PA & LATERAL CHEST PA LATERAL History: CHEST PRESSURE, SOA, BILATERAL LEG SWELLING X3 DAYS. No prior study for comparison. The heart size is not enlarged. No evidence of pneumothorax. No pleural effusion. No evidence of focal airspace consolidation. Regional skeleton grossly intact. IMPRESSION: No evidence of consolidating infiltrate. Electronically signed by: Rogelio Wakefield MD (08/01/2018 7:04 PM) [facility] PROCEDURE: CT ANGIOGRAPHY CHEST CT ANGIOGRAPHY CHEST Indication: SOA, chest heaviness, r/o PE . Technique: After intravenous contrast administration, CT imaging was performed of the chest. MIP reconstructions were obtained. Exposure: One or more of the following individualized dose reduction techniques were utilized for this examination: 1. Automated exposure control 2. Adjustment of the mA and/or kV according to patient size 3. Use of iterative reconstruction technique. No evidence of a pulmonary embolism. The thoracic aorta demonstrates no evidence of aneurysm or dissection. Mild pulsatility artifact at the ascending aorta. Proximal great vessels are patent. No significant lymph node enlargement. Thyroid is symmetric. No evidence of pericardial effusion. No significant pleural effusion. No evidence of consolidating infiltrate in either lung. The trachea and mainstem bronchi are patent. Scans through the upper abdomen are limited due to the technique, but demonstrate no definite acute abnormality. Vertebral body height and alignment are maintained with mild degenerative spondylosis. IMPRESSION: No evidence of pulmonary embolism or other acute abnormality. Electronically signed by: Rogelio Wakefield MD (08/01/2018 8:46 PM) [facility] DICTATED and SIGNED BY: ROGELIO WAKEFIELD MD DATE: 08/01/182045 (GABRIELE JONES APRN) Course & Med Decision Making Course & Med Decision Making Pertinent Labs and Imaging studies reviewed. (See chart for details) Orthostatic vital signs were obtained supine 119/83 HR 83 sitting 122/68 HR 79 standing 123/73 HR 83. 1950: Pt was ambulatory in the room and her heart rate went from 70s to 90s and she states she felt short of air and dizzy. Had initial discussed getting a chest CT to r/o PE as pt had been on progesterone recently and is having SOA/chest heaviness- she preferred to wait on labs. In-depth conversation had regarding patient's lab results and plan of care. EKG with no acute ST elevation or STEMI and troponin was <0.017. DDimer was 0.49- discussed this with pt along with her recent hormone tx/SOA- pt remains anxious regarding her sxs. Following discussion pt is preferring to have CTA chest prior to d/c home. Will provide patient with IV fluid bolus and obtain CTA chest to further rule out acute process/PE. 2104: Discussed CTA chest report with no acute findings/neg. for PE. Pt is in no distress at this time with equal/nonlabored resp. HR 66 with O2 sat 100% RA. IV fld bolus infusing and discussed plans for home d/c with pt to f/u with PCP if sxs persist. Pt reports she feels her sxs have improved w/the IV flds. Pt's flushed/reddened facial tone has improved. Discussed possible dehydration w/recent Rxs. Discussed all test results again. Pt is comfortable with home d/c as she is feeling better and CT was neg. encourage patient to increase fluids at home. Education provided on signs and symptoms to return to ER. Discharge instructions were discussed. Patient to follow-up with primary care physician if symptoms persist or with any concerns. (GABRIELE JONES APRN) Course & Med Decision Making Staff Physician Addendum: I was working in the ER during the course of this patient's visit. I was available for consultation as needed, but I was not directly involved in the care of this patient. (IRMA PATRICK MD) Dragon Disclaimer Dragon Disclaimer This electronic medical record was generated, in whole or in part, using a voice recognition dictation system. (GABRIELE JONES APRN) Departure Departure Impression: Primary Impression: Shortness of breath Additional Impression: Chest heaviness Disposition: 01 HOME, SELF-CARE Condition: STABLE Referrals: ROSENDO LEÓN (PCP) Patient Instructions: Chest Pain (Nonspecific), Shortness of Breath Additional Instructions: If symptoms persist or with concerns follow-up with your primary care physician for reevaluation and further care. Drink plenty of fluids. Problem Qualifiers GABRIELE JONES APRN Aug 01, 2018 20:09 IRMA PATRICK MD Sep 04, 2018 18:34
[2018-08-01] MEDS ORDERED: CONTRAST GIVEN. MC PRN (20:15)
[2018-08-01] MEDS ORDERED: IOHEXOL 350 MG/ML 100 ML VIAL. IV ONE (20:15)
--- NOTE | 2018-08-01 20:48 | RAD ---
CT ANGIOGRAPHY CHEST Indication: SOA, chest heaviness, r/o PE . Technique: After intravenous contrast administration, CT imaging was performed of the chest. MIP reconstructions were obtained. Exposure: One or more of the following individualized dose reduction techniques were utilized for this examination: 1. Automated exposure control 2. Adjustment of the mA and/or kV according to patient size 3. Use of iterative reconstruction technique. No evidence of a pulmonary embolism. The thoracic aorta demonstrates no evidence of aneurysm or dissection. Mild pulsatility artifact at the ascending aorta. Proximal great vessels are patent. No significant lymph node enlargement. Thyroid is symmetric. No evidence of pericardial effusion. No significant pleural effusion. No evidence of consolidating infiltrate in either lung. The trachea and mainstem bronchi are patent. Scans through the upper abdomen are limited due to the technique, but demonstrate no definite acute abnormality. Vertebral body height and alignment are maintained with mild degenerative spondylosis. IMPRESSION: No evidence of pulmonary embolism or other acute abnormality. Electronically signed by: Rogelio Wakefield MD (08/01/2018 8:46 PM) [facility]
[2018-08-01 21:26] VITALS: BP 112/80
--- NOTE | 2018-08-02 07:39 | EKG ---
[facility] [address] [place] [address] Test Date: 2018-08-01 Test Time: 17:45:22 Pat Name: BHARGAVI KENT Department: Room: Gender: F [employer] Winding Operator: : 1970 Requested By: GABRIELE JONES Order Number: [id number] Reading MD: Kade Haney Measurements Intervals [place] Rate: 93 P: 19 RI: 146 QRS: 5 QRSD: 94 T: 28 QT: 358 QTc: 448 Interpretive Statements SINUS RHYTHM NO SPECIFIC ECG ABNORMALITIES RI6.01 No previous ECG available for comparison Electronically Signed On 08-05-2018 9:22:49 CDT by Kade Haney
== END 2018-08-01 21:34 | disposition home or self-care (01) ==
LOC: ER 17:26
DX: R06.02 Shortness of breath (principal); R07.89 Other chest pain; R42 Dizziness and giddiness; I10 Essential (primary) hypertension; F31.9 Bipolar disorder, unspecified; G43.909 Migraine, unspecified, not intractable, without status migrainosus; Z88.7 Allergy status to serum and vaccine; Z88.8 Allergy status to other drugs, medicaments and biological substances
CPT/HCPCS: 36415; 71046; 71275; 80053; 81001; 82553; 83735; 83880; 84484; 85025; 85379; 93005; 96360; 99285; J7030; Q9967